=== PATIENT | female | born 2000 | race Caucasian/White ===

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

== ENCOUNTER 2019-03-08 18:56 | Emergency (ER) | payer OTHER, SELFPAY ==
[2019-03-08 19:18] VITALS: BP 133/78; PULSE 97; RESP 18; TEMP 36.5; O2SAT 100
--- NOTE | 2019-03-08 19:36 | NUR.NOTE ---
Nursing Note: Pt reports she hit her head against boyfriends head last night. no visible wounds. Denies LOC, denies blood thinners. Reports BUTCHER since. 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 PERRLA. reports intermittent blurry vision, nausea.
--- NOTE | 2019-03-08 20:13 | W.ED.GENAD ---
Discharge Plan Disposition Patient Disposition: HOME Condition: Good Discharge Details Chief Complaint: HeadInjury Clinical Impression: Head injury Primary Care Provider: Gracie King ED Provider: Lennie Mary Discharge Instructions Instructions: Head Injury (ED) Additional Instructions: Rest. Activities as tolerated. Avoid screen use as discussed. Use Motrin or Tylenol if needed for discomfort. Limit activities for the next few days. No heavy exertion until symptoms are improving. Review information regarding head injuries. Follow-up with your primary care doctor in the next 3 to 5 days. Return for any alarming symptoms, worsening or changes in your symptoms if needed sooner Stand Alone Forms: Work Release Medical Decision Making Patient presents for complaints of worsening headache after striking her head yesterday in bed when rolling over and struck her boyfriend's head with back of her head. Patient reports no loss of consciousness or dizziness. Patient does report mild spots in her vision without vision loss or blurred vision. Patient reports nausea with dry heaving without any fevers or chills. Patient does report mild neck pain. Patient does not feel she needs x-ray imaging of her neck. Discussed CT evaluation versus close observation for complaints of head injury given she does have a mild mechanism of injury however she would prefer CT at this time is aware the risks and the benefits. Patient would prefer testing before CT imaging. CT unremarkable for any acute intracranial abnormalities. Patient requesting discharge home at this time. Head injury precautions discussed. Conservative treatments discussed. Avoidance of screens discussed. Patient provided a work excuse for the next 3 days. Encouraged close follow-up with primary care doctor. Head injury precautions provided. The patient was stable and requested discharge. Prior to discharge, my usual and customary return precautions were reviewed with the patient - this included follow-up instructions and reasons to return to the Emergency Department if conditions worsens, does not improve as expected, or other new concerns arise. HPI General Date/Time Provider Initiated Documentation: 03/08/19 19:04. HPI Narrative: Patient presents for complaints of headache which is 8 out of 10, worse than her typical. Patient reports when she was in bed she accidentally rolled over striking the posterior of her head against her boyfriend. Patient reports immediate pain which is persisted since last night. Patient is concerned as headache is escalating associated with mild spots in her vision. Patient reports associated nausea with dry heaving without active vomiting. Patient denies numbness, tingling or weakness to arms or legs immediately after since her head injury. Patient reports mild neck discomfort without concern of fracture. Patient denies any tinnitus. Steady gait reported. Patient did take Tylenol 1 hour prior to arrival without significant relief of headache. No other concerns or complaints at this time. Patient denies any ill feeling recently. Related Data Allergies Allergy/AdvReac Type Severity Reaction Status Date / Time No Known Allergies Allergy Unverified 03/08/19 19:23 General Stated Complaint: HeadInjury LUIS: 3 Review of Systems Review of Systems ROS Unobtainable: All systems reviewed & are unremarkable except as noted in HPI and below Constitutional Constitutional: Denies chills, Reports fatigue, Denies fever(s), Reports headache(s), Denies malaise and Denies night sweats Eyes Eyes: Denies blurry vision, Denies diplopia and Reports spots in vision ENT Ears, Nose, Mouth, and Throat: Denies vertigo, Reports headache(s) and Denies tinnitus Musculoskeletal Musculoskeletal: Denies numbness Neurologic Neurologic: Denies confusion, Denies vertigo, Reports headache(s), Denies memory loss and Denies numbness Psychiatric Psychiatric: Denies confusion and Denies memory loss Endocrine Endocrine: Reports fatigue [facility] Medical History ADHD (Acute) Amenorrhea, secondary (Acute) Benign microscopic hematuria (Acute) Chronic GERD (Acute) Continuous nicotine dependence (Acute) Depression (Chronic) Hypothyroidism (Chronic) Irregular menses (Acute) Lactose intolerance (Acute) Migraine (Chronic) Nutritional deficiency (Acute) Obesity (Chronic) Social History Smoking/Tobacco Use Status: Current every day Drug use: Never Do you feel safe in your relationship?: Yes Exam Narrative Exam Narrative: CONST: Healthy appearing patient, in no acute distress. Well hydrated. Alert and alert. HENMT: Head nomocephalic, normal to inspection. Atraumatic. Hearing grossly normal. EYES: General normal appearance. Alignment normal. Eyelids normal. Conjunctiva normal. NECK: Normal visual inspection. FROM. Trachea midline. Mild lateral muscular tenderness with palpation. Mild midline tenderness. Full range of motion with minimal neck pain. MUSCULOSKELETAL: Normal Gait. FROM of all extremities. SKIN: Normal. Dry. No rashes. NEURO: Alert and awake. Speech clear. Alert and oriented x 3. Speech is clear. Cranial nerves intact as tested III - XI. Normal Kborsf-dy-azju test. No pronator drift. Normal heel-marie test. No Nystagmus. Gait normal. Strength intact in all extremities. Sensation intact in all extremities. PSYCH: Normal affect. Cooperative. Course Vital Signs Vital signs: Vital Signs Temperature 36.5 C 03/08/19 19:18 Pulse 97 H 03/08/19 19:18 Respiratory Rate 18 03/08/19 19:18 Blood Pressure 133/78 03/08/19 19:18 Pulse Oximetry 100 03/08/19 19:18 Temperature 36.5 C 03/08/19 19:18 Temperature Source Temporal Artery Scan 03/08/19 19:18 Pulse 97 H 03/08/19 19:18 Respiratory Rate 18 03/08/19 19:18 Respiratory Effort 03/08/19 19:33 Respiratory Depth Normal 03/08/19 19:33 Respiratory Pattern Normal 03/08/19 19:33 Blood Pressure 133/78 03/08/19 19:18 Pulse Oximetry 100 03/08/19 19:18 Oxygen Delivery Method Room Air 03/08/19 19:18 Oxygen Flow Rate 0 03/08/19 19:18 Pain Level 8 03/08/19 19:33
--- NOTE | 2019-03-08 20:23 | NUR.NOTE ---
Nursing Note: Ambulated to CT with steady gait.
--- NOTE | 2019-03-08 20:30 | DI.CT_ITS ---
EXAM: CT HEAD WO CLINICAL HISTORY: head injury. TECHNIQUE: A noncontrast enhanced examination was carried out according to the usual protocol. . COMPARISON: No exams were available for comparison FINDINGS: No evidence of an intra or extra-axial hemorrhage. There is no evidence of mass. The white matter is intact. The ventricles are normal. There is no skull fracture. There is no evidence of sinus or masto id air cell pathology. The soft tissues are unremarkable IMPRESSION: No acute intracranial abnormality is demonstrated.
--- NOTE | 2019-03-08 20:51 | DI.VRAD_ITS ---
PROCEDURE INFORMATION: Exam: CT Head without contrast Exam date and time: 03/08/2019 8:28 PM Clinical history: 18 years old, female; Pain; Headache not specified; Additional info: Head butt to back of head TECHNIQUE: Imaging protocol: Computed tomography of the head without contrast. Radiation optimization: All CT scans at this facility use at least one of these dose optimization techniques: automated exposure control; mA and/or kV adjustment per patient size (includes targeted exams where dose is matched to clinical indication); or iterative reconstruction. COMPARISON: CT HEAD WITHOUT CONTRAST 04/04/2014 1:56 PM FINDINGS: Brain: Normal. No hemorrhage. Unremarkable white matter. No mass effect. Ventricles: Normal. No ventriculomegaly. Bones/joints: Unremarkable. No acute fracture. Sinuses: Visualized sinuses are unremarkable. No fluid levels. Mastoid air cells: Visualized mastoid air cells are well aerated. Soft tissues: Unremarkable. IMPRESSION: No acute intracranial abnormality. Dictated and Authenticated by: Cedrick Vega MD. Ordering:DONTE Hogue MD
[2019-03-08 21:34] VITALS: BP 118/64; PULSE 80; RESP 16; TEMP 36.4; O2SAT 98
--- NOTE | 2019-03-08 21:41 | NUR.NOTE ---
Nursing Note: Discharge instructions reviewed with verbal understanding. aware to f/u with pcp as directed. ambulated to exit with steady gait.
== END 2019-03-08 21:40 | disposition home or self-care (01) ==
PROVIDERS: Emergency Provider Physician Assistant; PCP Nurse Practitioner Family
DX: R51 Headache (principal); W50.0XXA Accidental hit or strike by another person, initial encounter
CPT/HCPCS: 81025; 99284; 70450

== ENCOUNTER 2019-05-28 21:01 | Emergency (ER) | payer OTHER, SELFPAY ==
[2019-05-28 21:08] VITALS: BP 128/92; PULSE 79; RESP 16; TEMP 36.3; O2SAT 100
--- NOTE | 2019-05-28 21:22 | W.ED.GENAD ---
Discharge Plan Disposition Patient Disposition: HOME Condition: Good Discharge Details Chief Complaint: Orthopedic Clinical Impression: Contusion, Knee sprain, Back sprain Primary Care Provider: Gracie King ED Provider: Oswald Chapin Home Meds and New Rx's Prescriptions: New lidocaine [Lidoderm] 1 PATCH patch 1 patch Topical Q24H Qty: 4 RF: 0 Discharge Instructions Instructions: Knee Sprain (ED), Concussion (ED), Back Pain (ED) Additional Instructions: At this time your signs and symptoms are clinically consistent with a back sprain. This can cause significant pain and take a fair bit of time to heal. I expect 1 to 2 weeks for potential resolution. In the meantime do not lift anything greater than 5 pounds for the next 2 weeks. Avoid any significant vigorous physical activity. Perform easy gentle regular activities at home without any significant bending or lifting. Please take the steroids as directed. You have been given a prescription for Lidoderm patch. If your insurance does not cover this you can get [id number] Lidoderm patches at 4% which are almost just as effective. Please use a heating pad as often as possible on your back. Perform daily gentle stretches on your back. Please continue to take the Tylenol and Motrin. You can take 1000 mg of Tylenol every 6 hours and 600 mg of ibuprofen every 6 hours. If you do not notice any improvement of your symptoms for your back your knees after 1 to 2 weeks please return for the imaging that we discussed. If you notice any worsening of your symptoms, or any new symptoms such as vomiting, diarrhea, fever, chills, shortness of breath, chest pain, numbness or tingling in your groin or legs, weakness in your legs, loss of control for your bowels or bladder, or fainting , please return immediately to the emergency department for reevaluation. Please follow up with your primary care provider as soon as possible for reassessment and reevaluation. As always, it was a pleasure participating in your medical care today. Stand Alone Forms: Work Release Referrals: Gracie King [Primary Care Provider] - Medical Decision Making This is a 18-year-old female who presents today for evaluation of knee and back pain mild headache. Patient states that yesterday she slipped ground-level and hit her head. She is uncertain if she lost consciousness but thinks she may have briefly blacked out. She is able to get up immediately. Since then she has had very mild pain in her low back, and she has mild pain in her knees on which she landed. She has been able to walk and ambulate well. She denies any bowel or bladder incontinence, saddle anesthesia, numbness tingling or weakness. Symptoms are slightly improved with Tylenol. Made worse with movement and bending. She denies any dizziness or visual changes. She denies any neck pain. She denies any nausea vomiting or diarrhea. Physical exam demonstrates minimal tenderness over the knees, no significant effusion, no tibial plateau tenderness bilaterally. Cranial exam is unremarkable, neurologic exam is unremarkable. Back exam demonstrates minimal midline tenderness over the lower lumbar vertebrae, however there is no evidence of step-off, or significant tenderness. The majority of her pain appears to be in the paraspinal regions. Exam demonstrates no clinical evidence of cauda equina syndrome. The patient ambulates well without any significant difficulty. She shows no signs of acute distress or significant osseous abnormality or deformity. No evidence of significant trauma. I did discuss imaging options for the patient and at this time through notable discussion, weighing the risks and benefits, and a shared decision making process the patient would like to hold on imaging at this time. Respecting the patient's wishes we will hold off on imaging. Feels patient signs and symptoms are clinically consistent with musculoskeletal back strain, mild contusion of the knees, mild concussion. Recommend continued NSAIDs, rest, and a work note will be provided. Discussed red flags which to return. I have extensively reviewed the treatment plan and discharge instructions with the patient. I have addressed all patient concerns at this time. The patient was made aware of what symptoms to monitor for that would warrant a return to the emergency department. Discussed the plan with the patient, they demonstrate verbal understanding and agreement with our assessment and plan at this time. HPI General Date/Time Provider Initiated Documentation: 05/28/19 21:05. HPI Narrative: This is a 18-year-old female who presents today for evaluation of knee and back pain mild headache. Patient states that yesterday she slipped ground-level and hit her head. She is uncertain if she lost consciousness but thinks she may have briefly blacked out. She is able to get up immediately. Since then she has had very mild pain in her low back, and she has mild pain in her knees on which she landed. She has been able to walk and ambulate well. She denies any bowel or bladder incontinence, saddle anesthesia, numbness tingling or weakness. Symptoms are slightly improved with Tylenol. Made worse with movement and bending. She denies any dizziness or visual changes. She denies any neck pain. She denies any nausea vomiting or diarrhea. She has no other complaints at this time. No other modifying factors. Related Data Home Medications Medication Instructions Recorded Confirmed lidocaine [Lidoderm] 1 patch TOPICAL Q24H #4 patch 05/28/19 Previous Rx's Medication Instructions Recorded lidocaine [Lidoderm] 1 patch TOPICAL Q24H #4 patch 05/28/19 Allergies Allergy/AdvReac Type Severity Reaction Status Date / Time No Known Allergies Allergy Unverified 03/08/19 19:23 General Stated Complaint: Orthopedic LUIS: 3 Review of Systems All systems reviewed & are unremarkable except as noted in HPI and below PFSH Social History Smoking/Tobacco Use Status: Current every day Alcohol Intake: current Alcohol Intake frequency: holidays/special occasions only Drug use: Never Do you feel safe in your relationship?: Yes Exam Narrative Exam Narrative: 1.Const: Well-nourished, Well-developed, appearing stated age 2.Eyes: PERRL, no conjunctival injection, and symmetrical lids. 3.ENT: Atraumatic external nose and ears. Moist MM. Neck: Symmetric, trachea midline, No thyromegaly. There is no evidence of raccoon eyes, william sign, CSF rhinorrhea, mastoid tenderness, cranial crepitus, hemotympanum, exophthalmos, or hyphema. Patient demonstrates intact dentition with no signs of tooth avulsion or fracture, no signs of jaw deformity, no evidence of a LeFort's fracture, with an intact palate, nose and orbital region. There is no evidence of a nasal septal hematoma. No proptosis. Jaw closes symmetrically. Airway is clear. 4.CVS: +S1/S2, No murmurs or gallops. Peripheral pulses 2+ and equal in all extremities. Brisk capillary refill in all extremities. 5.RESP: Unlabored respiratory effort. Clear to auscultation bilaterally. No wheezes rales or rhonchi 6.GI: Soft, Nontender/Nondistended, No hepatosplenomegaly. No guarding or rebound. 7.MSK: Normocephalic/Atraumatic, Extremities w/o deformity or ttp No cyanosis or clubbing, Normal movement of all extremities No midline tenderness to palpation over the CTS spine. Minimal tenderness over the lower lumbar spine, no step-off, she does have mild paraspinal tenderness bilaterally in the lumbar region. Normal ROM in flexion, extension, side bend, and rotation. Patient has +5 out of 5 strength in the lower extremities in dorsiflexion and plantarflexion, knee flexion and extension, hip flexion and extension. Normal strength for dorsiflexion and plantar flexion of the great toe bilaterally. There is +2 over 2 dorsalis pedis pulses bilaterally. There is normal sensation to the skin with light touch at the foot, knee, and hip. Normal saddle sensation. Good sensation over the deep sural nerve area bilaterally. Rectal exam demonstrates good rectal tone and good perirectal sensation. Reflexes are +2 over 4 in the patellar reflex bilaterally. +5 out of 5 strength in the medial, ulnar, radial nerve distribution bilaterally in the hands as well as intact light touch sensation to these dermatomes on the hands Left knee: The knee is stable to varus, valgus, and anterior drawer stress. No deformity. Patellar grind test is negative. Minimal tenderness over the distal aspect of the femur. Jarrell test is positive for mild pain. Patient is able to walk without difficulty. No edema or warmth to the joint. No ttp to the patella, tibial plateau, or fibular head. Right knee:The knee is stable to varus, valgus, and anterior drawer stress. No deformity. Patellar grind test is negative. Minimal tenderness over the distal aspect of the femur. Jarrell test is positive for mild pain. Patient is able to walk without difficulty. No edema or warmth to the joint. No ttp to the patella, tibial plateau, or fibular head. 8.Skin: Warm, Dry. No rashes or lesions. 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 Sensation grossly intact, no focal neurologic deficits. 10.Psych: (AAO) x3. Appropriate mood and affect Course Vital Signs Vital signs: Vital Signs Temperature 36.3 C L 05/28/19 21:08 Pulse 79 05/28/19 21:08 Respiratory Rate 16 05/28/19 21:08 Blood Pressure 128/92 H 05/28/19 21:08 Pulse Oximetry 100 05/28/19 21:08 Temperature 36.3 C L 05/28/19 21:08 Temperature Source Skin 05/28/19 21:08 Pulse 79 05/28/19 21:08 Respiratory Rate 16 05/28/19 21:08 Respiratory Effort 05/28/19 21:08 Blood Pressure 128/92 H 05/28/19 21:08 Pulse Oximetry 100 05/28/19 21:08 Oxygen Delivery Method Room Air 05/28/19 21:08 Oxygen Flow Rate 0 05/28/19 21:08 Pain Level 6 05/28/19 21:08
[2019-05-28] MEDS: Lidocaine 5% Patch 1 PATCH TP (21:27)
[2019-05-28] MEDS: Ibuprofen 800 MG TAB PO (21:28)
[2019-05-28 21:38] VITALS: BP 128/92; PULSE 79; RESP 16; O2SAT 100
== END 2019-05-28 21:35 | disposition home or self-care (01) ==
LOC: ER 22:33
PROVIDERS: Emergency Provider Student in an Organized Health Care Education/Training Program; PCP Nurse Practitioner Family
DX: S33.5XXA Sprain of ligaments of lumbar spine, initial encounter (principal); S80.01XA Contusion of right knee, initial encounter; S80.02XA Contusion of left knee, initial encounter; R51 Headache; W00.0XXA Fall on same level due to ice and snow, initial encounter
CPT/HCPCS: 99282; 99283

== ENCOUNTER 2019-06-03 00:07 | Emergency (ER) | payer OTHER, SELFPAY ==
[2019-06-02 23:50] VITALS: BP 147/99; PULSE 112; RESP 16; TEMP 36.3; O2SAT 100
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
[2019-06-03] MEDS: Lidocaine 5% Patch 2 PATCH TP (00:07)
[2019-06-03] MEDS: Ibuprofen 800 MG TAB PO (00:09)
[2019-06-03] MEDS: Acetaminophen 500 MG TAB 1000 MG PO (00:10)
--- NOTE | 2019-06-03 00:11 | NUR.NOTE ---
Nursing Note: 2350: Patient taken to bathroom, instructed on urine collection.
--- NOTE | 2019-06-03 00:13 | NUR.NOTE ---
Nursing Note: 0000: Patient came out of bathroom, stating I forgot to pee in the cup and just peed in the toilet. Dr flood.
--- NOTE | 2019-06-03 00:19 | NUR.NOTE ---
Nursing Note: Patient back to bathroom to collect urine for U preg.
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
[2019-06-03 01:20] VITALS: BP 147/99; PULSE 112; RESP 16; O2SAT 100
== END 2019-06-03 01:25 | disposition home or self-care (01) ==
LOC: ER 01:35
PROVIDERS: Emergency Provider Student in an Organized Health Care Education/Training Program; PCP Nurse Practitioner Family
DX: S70.12XA Contusion of left thigh, initial encounter (principal); S43.401A Unspecified sprain of right shoulder joint, initial encounter; S76.312A Strain of muscle, fascia and tendon of the posterior muscle group at thigh level, left thigh, initial encounter; S06.0X0A Concussion without loss of consciousness, initial encounter; V47.5XXA Car driver injured in collision with fixed or stationary object in traffic accident, initial encounter
CPT/HCPCS: 73552; 81025; 99283

== ENCOUNTER 2019-06-27 20:25 | Emergency (ER) | payer OTHER, SELFPAY ==
[2019-06-27] MEDS: Ondansetron 4 MG/2 ML VIAL IVP (20:25)
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
[2019-06-27 20:28] VITALS: BP 131/82; PULSE 77; RESP 24; TEMP 37.1; O2SAT 98
[2019-06-27] MEDS: MORPHine 10 MG/ML VIAL 2 MG IVP (20:35)
[2019-06-27] MEDS: Lactated Ringers 1,000 ML 150 ML IV (20:45)
[2019-06-27 21:00] LABS: Abs Immature Grans 0.01 k/cumm (0.0-0.09); Absolute Basophil Count 0.04 k/cumm (0.0-0.2); Absolute Eosinophil Count 0.25 k/cumm (0.0-0.7); Absolute Lymphocyte Count 4.04 k/cumm (1.2-3.4); Absolute Monocyte Count 1.06 k/cumm (0.11-0.7); Basophils % 0.4; Eosinophils % 2.4; HCT 41.6 % (36.0-46.0); Immature Grans % 0.1 %; Lymphocytes % 38.1; Mean Corp. HGB Concentration 33.7 g/dL (32.0-36.0); Mean Corpuscular Hemoglobin 29.7 pg (27.0-33.0); Mean Corpuscular Volume 88.1 fL (80-95); Mean Platelet Volume 11.4 fL (8.0-11.0); Platelet Count 369 x1000/uL (130-400); RBC 4.72 m/cumm (4.00-5.20); RBC Distribution Width 13.1 % (11.7-14.6)
[2019-06-27 21:11] LABS: ALT 95 U/L (14-59); AST 65 U/L (15-37); Albumin 4.2 g/dL (3.4-5.0); Alkaline Phosphatase 93 U/L (46-116); Anion Gap 12.2 mmol/L (3-11); BUN 10 mg/dL (7-18); Bilirubin, Total 1.2 mg/dL (0.2-1.0); CO2 26.8 mmol/L (21.0-32.0); CREATININE 0.65 mg/dL (0.55-1.02); Calcium 9.4 mg/dL (8.5-10.1); Chloride 101 mmol/L (98-107); Glucose 94 mg/dL (74-106); Potassium 3.6 mmol/L (3.5-5.1); Sodium 140 mmol/L (136-145); Total Protein 7.9 g/dL (6.4-8.2)
[2019-06-27] MEDS: ACETAMINOPHEN 1,000 MG/100 ML BTL 400 MG (21:17)
[2019-06-27 21:21] LABS: ETHANOL BLOOD < 3.0 mg/dL (<3)
[2019-06-27] MEDS: Omnipaque 350 MG/ML 100 ML BTL IJ (21:43)
[2019-06-27 21:49] LABS: *AMPHETAMINES SCREEN URINE Negative (Negative); *BARBITURATES SCREEN URINE Negative (Negative); *BENZODIAZEPINES SCREEN URINE Negative (Negative); Cannabinoids THC POSITIVE (Negative); Cocaine Screen,Urine Negative (Negative); METHADONE URINE SCREEN Negative (Negative); OPIATES URINE SCREEN POSITIVE (Negative)
[2019-06-27 21:52] LABS: Tricyclic Antidepressants Negative (Negative)
[2019-06-27 21:53] LABS: Bilirubin Negative (Negative); Blood Negative (Negative); Clarity Clear (Clear); Glucose Negative (Negative); Ketones 15 mg/dL (Negative); Leukocyte Esterase Negative (Negative); Nitrite Negative (Negative); Urobilinogen 0.2 EU/dL (Up TO 0.2)
--- NOTE | 2019-06-27 21:55 | DI.CT_ITS ---
EXAM: CT HEAD CERVICAL SPINE WO CLINICAL HISTORY: trauma/fell down flight of stairs TECHNIQUE: COMPARISON: CT HEAD WO from 03/08/2019 FINDINGS: CT examination cervical spine was performed with multi slice acquisition multiplanar reconstruction. Images obtained through the lung apices are unremarkable. No gross cervical mass or adenopathy seen . Tracheolaryngeal structures appear intact. No cervical fracture or dislocation. Noncontrast cranial CT was performed. No evidence of acute intracranial hemorrhage mass effect or mi dline shift. The orbital and temporal bone structures appear intact. Paranasal sinuses predominantl y well aerated with probable small left maxillary retention cyst. Mastoid air cells are clear. No c alvarial fracture identified. IMPRESSION: No evidence of acute cervical spine fracture. No evidence of acute intracranial injury.
--- NOTE | 2019-06-27 21:57 | DI.CT_ITS ---
EXAM: CT CHEST/ABD/PEL W CLINICAL HISTORY: trauma/fell down flight of stairs TECHNIQUE: COMPARISON: No exams were available for comparison FINDINGS: CT examination the chest, abdomen, and pelvis was performed with intravenous infusion of 100 cc of Om nipaque 350. Reconstructions of the thoracic spine and lumbar spine were also obtained. Reconstructions thoracic and lumbar spine show no evidence of acute injury. Minimal T3 superior endp late deformity probably congenital or chronic. No bony injury in the region surveyed. Lungs are clear and well expanded, no pneumothorax or hemothorax. No mediastinal injury. Normal verenice earance of mediastinal vascular structures. Normal appearance of tracheobronchial tree. No chest wa ll injury. Liver, spleen, pancreas, adrenals, and kidneys appear normal with no evidence of acute visceral injur y. Gallbladder and bile ducts are CT normal. No evidence of abdominal or pelvic vascular injury. N o free fluid or free air in the abdominal cavity. No significant abdominal wall hernia or abdominal wall injury. No adenopathy seen. Mineral Surveyor structures unremarkable. IMPRESSION: No evidence of acute injury.
--- NOTE | 2019-06-27 23:08 | DI.VRAD_ITS ---
PROCEDURE INFORMATION: Exam: CT Head Without Contrast Exam date and time: 06/27/2019 9:49 PM Age: 18 years old Clinical indication: Injury or trauma; Fall; Initial encounter; Blunt trauma (contusions or hematomas); Consciousness not specified; Injury date: 06/27/2019; Injury details: Fell down flight of stairs TECHNIQUE: Imaging protocol: Computed tomography of the head without contrast. Radiation optimization: All CT scans at this facility use at least one of these dose optimization techniques: automated exposure control; mA and/or kV adjustment per patient size (includes targeted exams where dose is matched to clinical indication); or iterative reconstruction. COMPARISON: CT HEAD WO 03/08/2019 8:28 PM FINDINGS: Brain: No evidence for acute transcortical infarct. No mass effect or midline shift. No extra-axial collection. No acute intracranial hemorrhage. Basal cisterns are patent. Ventricles: Normal. No ventriculomegaly. Bones/joints: Unremarkable. No acute fracture. Sinuses: Polyp versus retention cyst within the left maxillary sinus. Mastoid air cells: Visualized mastoid air cells are well aerated. Soft tissues: Unremarkable. IMPRESSION: No acute intracranial hemorrhage or mass effect. PROCEDURE INFORMATION: Exam: CT Cervical Spine Without Contrast Exam date and time: 06/27/2019 9:49 PM Age: 18 years old Clinical indication: Injury or trauma; Fall; Initial encounter; Blunt trauma (contusions or hematomas); Consciousness not specified; Injury date: 06/27/2019; Injury details: Fell down flight of stairs TECHNIQUE: Imaging protocol: Computed tomography images of the cervical spine without contrast. Radiation optimization: All CT scans at this facility use at least one of these dose optimization techniques: automated exposure control; mA and/or kV adjustment per patient size (includes targeted exams where dose is matched to clinical indication); or iterative reconstruction. COMPARISON: CT HEAD WO 03/08/2019 8:28 PM FINDINGS: Vertebrae: No acute fracture or traumatic subluxation. No spondylolisthesis. The atlantooccipital and atlantoaxial articulations are intact. Facet joint alignments are maintained. Discs/Spinal canal/Neural foramina: No spinal stenosis. No neural foraminal narrowing. Other bones/joints: Occipital condyles are intact. Prevertebral Space: No prevertebral soft tissue swelling. Soft tissues: Unremarkable. Lungs: Lung apices are normal. IMPRESSION: No acute fracture or traumatic subluxation. Dictated and Authenticated by: Dwayne Castro MD. Ordering:ZACH Skaggs MD
--- NOTE | 2019-06-27 23:31 | DI.VRAD_ITS ---
PROCEDURE INFORMATION: Exam: CT Chest With Contrast Exam date and time: 06/27/2019 9:54 PM Age: 18 years old Clinical indication: Injury or trauma; Fall; Initial encounter; Generalized; Blunt trauma (contusions or hematomas); Injury date: 06/27; Injury details: Trauma patient fell down flight of stairs. TECHNIQUE: Imaging protocol: Computed tomography of the chest with intravenous contrast. Radiation optimization: All CT scans at this facility use at least one of these dose optimization techniques: automated exposure control; mA and/or kV adjustment per patient size (includes targeted exams where dose is matched to clinical indication); or iterative reconstruction. Contrast material: OMNIPAQUE 350; Contrast volume: 100 ml; Contrast route: IV; COMPARISON: US PELVIS ULTRASOUND *(P) 01/09/2015 10:32 PM FINDINGS: Thyroid: The visualized thyroid gland is unremarkable. Lungs: No tracheobronchial abnormalities. No infiltrates or edema. 14 mm subpleural bleb along the posterior left lower lobe. No pulmonary nodules or mass lesions are identified. Pleural space: No pleural effusions. No pneumothorax. Heart: Heart size normal. Mediastinum: The esophagus is largely contracted without gross abnormality. Pulmonary arteries: The pulmonary arteries demonstrate no gross abnormality. Aorta: The aorta enhances appropriately without evidence of dissection or aneurysm. No mediastinal hematoma. Lymph nodes: No supraclavicular or axillary adenopathy. No mediastinal or hilar adenopathy. Bones/joints: No acute osseous abnormalities are identified. Soft tissues: Soft tissues of the thoracic wall demonstrate no gross abnormality. IMPRESSION: No acute thoracic process is identified. PROCEDURE INFORMATION: Exam: CT Abdomen And Pelvis With Contrast Exam date and time: 06/27/2019 9:54 PM Age: 18 years old Clinical indication: Injury or trauma; Fall; Initial encounter; Generalized; Blunt trauma (contusions or hematomas); Injury date: 06/27; Injury details: Trauma patient fell down flight of stairs. TECHNIQUE: Imaging protocol: Computed tomography of the abdomen and pelvis with intravenous contrast. Radiation optimization: All CT scans at this facility use at least one of these dose optimization techniques: automated exposure control; mA and/or kV adjustment per patient size (includes targeted exams where dose is matched to clinical indication); or iterative reconstruction. Contrast material: OMNIPAQUE 350; Contrast volume: 100 ml; Contrast route: IV; COMPARISON: US PELVIS ULTRASOUND *(P) 01/09/2015 10:32 PM FINDINGS: Lungs: Visualized lung bases are clear. Heart: Heart size normal. Mediastinum: The visualized distal esophagus is normal. Liver: Normal size and contour. No mass lesions. No intrahepatic biliary ductal dilatation. Gallbladder and bile ducts: Normal. No calcified stones. No ductal dilation. Pancreas: Normal. No inflammatory changes or ductal dilation. Spleen: Normal. No splenomegaly. Adrenals: Normal. No adrenal mass. Kidneys and ureters: No acute abnormalities. No hydronephrosis or hydroureter. No urinary tract stones are identified. Stomach and bowel: The stomach is grossly normal. The small bowel is normal with no evidence of obstruction. No acute colonic abnormalities. Appendix: The appendix is normal in caliber and demonstrates no evidence of appendicitis. Intraperitoneal space: Small amount of intrapelvic free fluid, within physiologic range for a young woman. No free air. Vasculature: No acute process. No abdominal aortic aneurysm. Lymph nodes: No adenopathy. Bladder: Unremarkable as visualized. Reproductive: Several small physiologic follicles in both ovaries with a 10 mm peripherally enhancing collapsed appearing follicle in the left ovary suspicious for recently ruptured and involuting ovarian follicle. Bones/joints: No acute osseous abnormalities. Soft tissues: Unremarkable. IMPRESSION: 1. No acute intra-abdominal/intrapelvic injuries are identified. 2. Small amount of intrapelvic free fluid, within physiologic range for young woman. 10 mm involuting follicle in the left ovary. Dictated and Authenticated by: Jame Hong MD. Ordering:ZACH Skgags MD
--- NOTE | 2019-06-28 00:03 | DI.VRAD_ITS ---
PROCEDURE INFORMATION: Exam: CT Thoracic Spine Without Contrast Exam date and time: 06/27/2019 10:48 PM Age: 18 years old Clinical indication: Injury or trauma; Fall; Injury date: 06/27/19; Injury details: Fell down stairs TECHNIQUE: Imaging protocol: Computed tomography images of the thoracic spine without contrast. Radiation optimization: All CT scans at this facility use at least one of these dose optimization techniques: automated exposure control; mA and/or kV adjustment per patient size (includes targeted exams where dose is matched to clinical indication); or iterative reconstruction. COMPARISON: No relevant prior studies available. FINDINGS: Vertebrae: Thoracic vertebral alignment is normal. There is slight superior endplate compression deformity of T3 with about 10% loss of anterior vertebral body height. This is smoothly contoured without definite acute fracture lines, and without significant paraspinous edema, which would tend to favor mild chronic compression. If clinically indicated, MRI would allow the most sensitive/specific assessment to differentiate acute from chronic mild compression. No retropulsion. No other fractures. Discs/Spinal canal/Neural foramina: No jumped or perched facets. Disc space heights are well-maintained. No compressive soft disc protrusion or extrusion is evident by CT. No evidence of significant central canal stenosis. No evidence of significant neuroforaminal stenosis. Other bones/joints: No blastic or lytic lesions. Soft tissues: Paraspinous soft tissues are unremarkable without significant soft tissue swelling or soft tissue hematoma. Visualized upper abdominal structures were unremarkable. Lungs: The visualized lung zeng are clear. Pleural space: No evidence of pleural effusion or pneumothorax within the scan range. Mediastinum: Visualized mediastinal structures are normal. Thyroid: The visualized thyroid gland is unremarkable. IMPRESSION: 1. There is slight superior endplate compression deformity of T3 (about 10% ). No definite acute features are identified by CT. No retropulsion. If clinically indicated, MRI assessment would allow the most sensitive/specific differentiation between acute and chronic compression. 2. The remainder of the exam was normal. PROCEDURE INFORMATION: Exam: CT Lumbar Spine Without Contrast Exam date and time: 06/27/2019 10:48 PM Age: 18 years old Clinical indication: Injury or trauma; Fall; Injury date: 06/27/19; Injury details: Fell down stairs TECHNIQUE: Imaging protocol: Computed tomography images of the lumbar spine without contrast. Radiation optimization: All CT scans at this facility use at least one of these dose optimization techniques: automated exposure control; mA and/or kV adjustment per patient size (includes targeted exams where dose is matched to clinical indication); or iterative reconstruction. COMPARISON: No relevant prior studies available. FINDINGS: Vertebrae: Lumbosacral alignment is normal. No fractures or pars defects. L1-L2: Normal. Discs/Spinal canal/Neural foramina: No compressive soft disc extrusions or protrusions are identified by CT. No central canal stenosis. No neuroforaminal stenosis. L4-L5: Normal. L5-S1: Slight posterior disc space narrowing. Other bones/joints: No blastic or lytic lesions. Intraperitoneal space: Small amount of intrapelvic free fluid, within physiologic range for a young woman. Soft tissues: Visualized paraspinal soft tissues are normal. Other findings: T12-L1: Normal. L2-L3: Normal. L3-L4: Normal. Visualized retroperitoneal structures are normal. IMPRESSION: 1. No evidence of fracture or traumatic subluxation in the lumbar spine. 2. Slight posterior disc space narrowing L5-S1. Dictated and Authenticated by: Jame Hong MD. Ordering:ZACH Skaggs MD
[2019-06-28 00:54] VITALS: BP 109/59; PULSE 61; RESP 65; O2SAT 99
== END 2019-06-28 01:00 | disposition home or self-care (01) ==
PROVIDERS: Emergency Provider Emergency Medicine; PCP Nurse Practitioner Family
DX: S50.311A Abrasion of right elbow, initial encounter (principal); S50.312A Abrasion of left elbow, initial encounter; S20.229A Contusion of unspecified back wall of thorax, initial encounter; S09.90XA Unspecified injury of head, initial encounter; W10.9XXA Fall (on) (from) unspecified stairs and steps, initial encounter
CPT/HCPCS: 74177; 80053; 80307; 81025; 96374; 96375; 99285; 70450; 71260; 72125; 80320; 81003; 85025; 99284; J0131; J2270; J2405; J3490

== ENCOUNTER 2019-07-02 18:35 | Emergency (ER) | payer OTHER, SELFPAY ==
[2019-07-02 18:39] VITALS: BP 138/72; PULSE 93; RESP 18; TEMP 36.3; O2SAT 98
--- NOTE | 2019-07-02 19:03 | ED.GENADUL_ITS ---
Discharge Plan Disposition Patient Disposition: HOME Condition: Improving Discharge Details Chief Complaint: Nausea/Vomit/Diar Clinical Impression: Viral illness, Gastroenteritis Primary Care Provider: Gracie King ED Provider: Lennie Mary Home Meds and New Rx's Prescriptions: New ondansetron HCl [Zofran] 4 mg tablet 4 mg PO Q8H PRN (Reason: nausea and vomiting) Qty: 7 RF: 0 Discharge Instructions Instructions: Gastroenteritis (ED), Viral Syndrome (ED) Additional Instructions: Drink plenty of fluids. Rest activities as tolerated. Use Tylenol for soreness if needed. Nausea medication as prescribed if needed for any persistent symptoms. Follow-up promptly with your primary care doctor in the next 1 to 2 days. Return to the emergency room immediately for any escalation of your abdominal pain, worsening of your concerns or alarming symptoms sooner if needed Medical Decision Making Is a 18-year-old patient presenting for abdominal pain for the last 5 days. Patient reports escalating abdominal pain now reports approximately 7 out of 10 abdominal pain. Patient reports pain is constant. No waxing and waning antonio acteristics. Patient does report nausea with onset of vomiting in the last 24 hours. Patient reports watery diarrhea throughout the last 5 days. Patient does report associated nasal congestion. Reports headache and malaise. Reports subjective flushing and chills but no measured fever. Patient denies urinary complaints. On exam patient has obvious abdominal pain with palpation of right upper, left upper and right lower quadrants. Spares left lower quadrant. No obvious peritoneal signs. Patient is afebrile here. Patient is drinking water at this time but reports several episodes of vomiting which is uncontrollable. Patient does report nasal congestion but no other URI complaints. Patient provided IV fluid as well as Zofran. Labs obtained as well as urinalysis and testing. Patient's labs reveal no leukocytosis, CMP is normal, lipase normal, testing negative, urinalysis normal. Reevaluation of the patient reveals significant improvement in her abdominal exam. No right lower quadrant tenderness at this time. No persistent right upper quadrant tenderness. Mild persistent left upper quadrant tenderness. Nausea has improved. Patient reports pain in the left upper quadrant which persists is significantly improved. Given patient's nasal congestion, malaise, headache, chills as well as abdominal pain with nausea vomiting and diarrhea I suspect viral illness however given patient's complaint of escalating abdominal pain we did discussed pursuing CT imaging of her abdomen at this time versus 12 to 24-hour reevaluation for any persistence or worsening of symptoms. Recommended close follow-up with PCP. Patient's preference is to be discharged at this time, prescription for nausea medication, return for any persistence of symptoms in the next 12 to 24 hours, prompt recheck with PCP. The patient was stable and requested discharge. Prior to discharge, my usual and customary return precautions were reviewed with the patient - this included follow-up instructions and reasons to return to the Emergency Department if conditions worsens, does not improve as expected, or other new concerns arise. And she HPI General Date/Time Provider Initiated Documentation: 07/02/19 18:36 . HPI Narrative: This is a 18-year-old patient presenting to the emergency room for nausea vomiting and abdominal pain for the last 5 days. Patient reports escalating abdominal pain which began 5 days ago. Patient reports she did have watery diarrhea for the last 5 days. Patient denies any blood in bowel movements. Patient reports abdominal pain continues to escalate and is now 7 out of 10. Patient describes abdominal pain is diffuse. No waxing and waning with vomiting or bowel movements. Patient reports onset of vomiting in the last 24 hours. Reports approximately 8 episodes of vomiting today and several yesterday continuing overnight. Patient denies urinary urgency, frequency or dysuria. Patient does report feeling dehydrated although she is currently drinking water at the bedside. Patient does report mild nasal congestion. Minimal sore throat. Denies cough, difficulty beating shortness of breath or wheezing. Patient reports mild headache and malaise. Denies vaginal discharge or bleeding. No other concerns or complaints at this time. Patient does report mild back pain which resulted from a fall for which she was evaluated in the emergency room approximately 1 week ago. Related Data Home Medications Medication Instructions Recorded Confirmed ondansetron HCl [Zofran] 4 mg PO Q8H PRN #7 tab 07/02/19 Previous Rx's Medication Instructions Recorded ondansetron HCl [Zofran] 4 mg PO Q8H PRN #7 tab 07/02/19 Allergies Allergy/AdvReac Type Severity Reaction Status Date / Time No Known Allergies Allergy Unverified 07/02/19 18:45 General Stated Complaint: Nausea/Vomit/Diar LUIS: 3 Review of Systems All systems reviewed & are unremarkable except as noted in HPI and below Constitutional Constitutional: Reports chills, Reports fatigue, Denies fever(s), Reports headache(s) and Reports malaise ENT Ears, Nose, Mouth, and Throat: Denies otalgia, Reports headache(s), Reports nasal congestion, Denies sinus pain, Denies sinus pressure, Denies sore throat and Denies throat swelling Cardiovascular Cardiovascular: Denies chest pain, Denies dyspnea and Denies dyspnea on exertion Respiratory Respiratory: Denies cough, Denies dyspnea, Denies dyspnea on exertion and Denies wheezing Gastrointestinal Gastrointestinal: Reports abdominal pain, Denies cramping, Reports diarrhea, Reports nausea and Reports vomiting Genitourinary Genitourinary: Denies hematuria, Denies dysuria, Denies urinary hesitancy and Denies urinary urgency Integumentary/Breasts Skin/Breast: Denies rash Neurologic Neurologic: Reports headache(s) Endocrine Endocrine: Reports fatigue Allergic/Immunologic Allergic/Immunologic: Denies throat swelling and Denies wheezing [facility] Medical History ADHD (Chronic) Amenorrhea, secondary (Chronic) Chronic GERD (Chronic) Depression (Chronic) Hypothyroidism (Chronic) Lactose intolerance (Chronic) Migraine (Chronic) Obesity (Chronic) Surgical History No significant past surgical history (Acute) Social History Smoking/Tobacco Use Status: Current every day Alcohol Intake: current Alcohol Intake frequency: holidays/special occasions only Drug use: Daily Substance use type: marijuana Do you feel safe at home: Yes Do you feel safe in your relationship?: Yes Exam Narrative Exam Narrative: CONST: Healthy appearing patient, in no acute distress. Well hydrated. Alert and oriented. HENMT: Head nomocephalic, normal to inspection. Atraumatic. Hearing grossly normal. TMs appear normal bilaterally, minimal pharyngeal erythema. EYES: General normal appearance. Alignment normal. Eyelids normal. Conjunctiva normal. NECK: Normal visual inspection. FROM. Trachea midline. No Midline tenderness. No cervical lymphadenopathy present. No meningeal signs. CHEST: Normal insepection of the chest. RESP: Normal respiratory effort. Speaking full sentences. No cough. No audible wheezing. No retractions. Breath sounds clear, full and equal bilaterally. No wheezing, rhonchi or rales. CARDIO: No JVD. No murmur. Regular rate and rhythm GI: Bowel sounds hypoactive in all 4 quadrants. Abdomen is soft. Abdominal tenderness noted in the right upper and left upper quadrants as well as right lower quadrant. No abdominal tenderness in the left lower quadrant. No peritoneal signs, rebound or guarding. Back: No CVA tenderness noted. Mild thoracic pain with palpation of the midline Course Vital Signs Vital signs: Vital Signs Temperature 36.3 C L 07/02/19 18:39 Pulse 93 H 07/02/19 18:39 Respiratory Rate 18 07/02/19 18:39 Blood Pressure 138/72 07/02/19 18:39 Pulse Oximetry 98 07/02/19 18:39 Temperature 36.3 C L 07/02/19 18:39 Temperature Source Skin 07/02/19 18:39 Pulse 93 H 07/02/19 18:39 Respiratory Rate 18 07/02/19 18:39 Respiratory Effort Non-Labored 07/02/19 18:42 Blood Pressure 138/72 07/02/19 18:39 Blood Pressure Position Sitting 07/02/19 18:39 Pulse Oximetry 98 07/02/19 18:39 Oxygen Delivery Method Room Air 07/02/19 18:39 Oxygen Flow Rate 0 07/02/19 18:39
[2019-07-02 19:19] LABS: Abs Immature Grans 0.02 k/cumm (0.0-0.09); Absolute Basophil Count 0.02 k/cumm (0.0-0.2); Absolute Eosinophil Count 0.37 k/cumm (0.0-0.7); Absolute Monocyte Count 0.68 k/cumm (0.11-0.7); Basophils % 0.2; Eosinophils % 3.9; HCT 42.8 % (36.0-46.0); HGB 14.2 g/dL (12.0-15.5); Immature Grans % 0.2 %; Lymphocytes % 12.5; Mean Corp. HGB Concentration 33.2 g/dL (32.0-36.0); Mean Corpuscular Hemoglobin 29.8 pg (27.0-33.0); Mean Corpuscular Volume 89.9 fL (80-95); Mean Platelet Volume 11.5 fL (8.0-11.0); Monocytes % 7.1; Neutrophils % 76.1; Platelet Count 308 x1000/uL (130-400); RBC 4.76 m/cumm (4.00-5.20); RBC Distribution Width 13.6 % (11.7-14.6); White Blood Cell Count 9.59 k/cumm (4.4-10.8)
[2019-07-02] MEDS: Normal Saline 1,000 ML 1000 ML IV (19:25)
[2019-07-02] MEDS: Ondansetron 4 MG/2 ML VIAL IVP (19:26)
[2019-07-02 19:31] LABS: ALT 51 U/L (14-59); AST 18 U/L (15-37); Albumin 3.7 g/dL (3.4-5.0); Alkaline Phosphatase 92 U/L (46-116); Anion Gap 10.6 mmol/L (3-11); BUN 7 mg/dL (7-18); Bilirubin, Total 0.9 mg/dL (0.2-1.0); CO2 27.4 mmol/L (21.0-32.0); Calcium 8.7 mg/dL (8.5-10.1); Chloride 102 mmol/L (98-107); Glucose 101 mg/dL (74-106); Lipase 117 U/L (73-393); Potassium 3.3 mmol/L (3.5-5.1); Sodium 140 mmol/L (136-145); Total Protein 7.4 g/dL (6.4-8.2)
[2019-07-02 19:32] LABS: HCG Qual (Serum) Negative
[2019-07-02 19:44] LABS: Bilirubin Negative (Negative); Blood Negative (Negative); Clarity Clear (Clear); Glucose Negative (Negative); Ketones Negative (Negative); Leukocyte Esterase Negative (Negative); Nitrite Negative (Negative); Specific Gravity 1.015 (1.005-1.025); Urobilinogen 0.2 EU/dL (Up TO 0.2)
== END 2019-07-02 20:45 | disposition home or self-care (01) ==
PROVIDERS: Emergency Provider Physician Assistant; PCP Nurse Practitioner Family
DX: R11.2 Nausea with vomiting, unspecified (principal); K52.9 Noninfective gastroenteritis and colitis, unspecified; R10.84 Generalized abdominal pain; R51 Headache
CPT/HCPCS: 36415; 80053; 83690; 87449; 96361; 96374; 99284; 81003; 84703; 85025; 87086; J2405

== ENCOUNTER 2019-07-13 13:04 | Emergency (ER) | payer OTHER, SELFPAY ==
[2019-07-13 13:09] VITALS: BP 152/91; PULSE 99; RESP 16; TEMP 36.5; O2SAT 99
--- NOTE | 2019-07-13 13:22 | ED.GENADUL_ITS ---
Discharge Plan Disposition Patient Disposition: HOME Condition: Improving Discharge Details Chief Complaint: Orthopedic Clinical Impression: Avulsion fracture of bone Primary Care Provider: Gracie King ED Provider: Bg Garcia Home Meds and New Rx's Prescriptions: Continued ondansetron HCl [Zofran] 4 mg tablet 4 mg PO Q8H PRN (Reason: nausea and vomiting) Qty: 7 RF: 0 Discharge Instructions Additional Instructions: Walking boot with use of crutches as needed. Please call the orthopedic office on Monday for a follow-up appointment. The office #[phone]. Ice to area to reduce discomfort. You may use Tylenol if needed for pain. Return to the ER for any acute concerns. Stand Alone Forms: Work Release Discharge Data Discharge Date/Time-TO BE ENTERED AT DEPARTURE: 07/13/19 15:35 Medical Decision Making 18-year-old female with a twisting injury to the right foot last night with medial pain and swelling and slight bruising today. Differential diagnosis includes strain versus fracture. Patient referred for x-ray. The x-ray reveals a small cortical piece of bone lateral to the calcaneal cuboid joint with associated soft tissue swelling may represent a small avulsion fracture. Will immobilize in a walking boot. Crutches if needed. Will refer to orthopedics for recheck in clinic. HPI General Mode of arrival: ambulatory . Date/Time Provider Initiated Documentation: 07/13/19 13:19 . Limitations to Documentation: no limitations . Information obtained by: patient . History of Present Illness 18 year old F presents to the emergency department with the chief complaint of Right foot pain after twisting injury on stairs yesterday, described as moderate, Quality is described as aching and dull, and is localized to the right and lower extremity. Patient reports no radiation. Patient started experiencing this hour(s) and it has been constant. No relieving factors improve symptom(s), No exacerbating factors reported . Patient did receive the following treatments prior to arrival, none Related Data Home Medications Medication Instructions Recorded Confirmed ondansetron HCl [Zofran] 4 mg PO Q8H PRN #7 tab 07/02/19 07/13/19 Previous Rx's Medication Instructions Recorded ondansetron HCl [Zofran] 4 mg PO Q8H PRN #7 tab 07/02/19 Allergies Allergy/AdvReac Type Severity Reaction Status Date / Time No Known Allergies Allergy Unverified 07/13/19 13:11 General Stated Complaint: Orthopedic LUIS: 4 Review of Systems Narrative: 6 systems reviewed and otherwise negative. No other injury. No numbness or tingling. [facility] Medical History ADHD (Chronic) Amenorrhea, secondary (Chronic) Chronic GERD (Chronic) Depression (Chronic) Hypothyroidism (Chronic) Lactose intolerance (Chronic) Migraine (Chronic) Obesity (Chronic) Surgical History No significant past surgical history (Acute) Social History Smoking/Tobacco Use Status: Current every day Tobacco Type: cigarettes Smoking packs per day: 0.5 Smoking cigarettes per day: 10.0 Alcohol Intake: current Alcohol Intake frequency: holidays/special occasions only Drug use: Daily Substance use type: marijuana Do you feel safe at home: Yes Do you feel safe in your relationship?: Yes Exam Narrative Exam Narrative: GEN: awake, alert, oriented 3. Pleasant, well groomed, interactive. HEAD: Normocephalic, atraumatic ENT: Mucous membranes moist, oropharynx unremarkable, External ear exam unremarkable EXT: Full ROM, the right foot has medial swelling and ecchymosis, tender. The bilateral malleoli are nontender. Neuro: Grossly normal neurologic exam, conversant, interactive. Psych: Speech fluent, thoughts congruent, affect normal Course Vital Signs Vital signs: Vital Signs Temperature 36.5 C 07/13/19 13:09 Pulse 99 H 07/13/19 13:09 Respiratory Rate 16 07/13/19 13:09 Blood Pressure 152/91 H 07/13/19 13:09 Pulse Oximetry 99 07/13/19 13:09 Temperature 36.5 C 07/13/19 13:09 Temperature Source Skin 07/13/19 13:09 Pulse 99 H 07/13/19 13:09 Respiratory Rate 16 07/13/19 13:09 Respiratory Effort Non-Labored 07/13/19 13:09 Blood Pressure 152/91 H 07/13/19 13:09 Pulse Oximetry 99 07/13/19 13:09 Oxygen Delivery Method Room Air 07/13/19 13:09 Oxygen Flow Rate 0 07/13/19 13:09 Pain Level 8 07/13/19 13:11
--- NOTE | 2019-07-13 14:07 | DI.RAD_ITS ---
EXAM: XR FOOT RT COMPLETE INDICATION: LATERAL FOOT PAIN/SWELLING. COMPARISON: No exams were available for comparison TECHNIQUE: 2D digital imaging was performed. FINDINGS: There is a small bony density near the lateral aspect of the calcaneocuboid joint, which could repres ent a small ossicle versus avulsion fracture. There is a small accessory navicular. There is minima l spurring at the Achilles insertion on the calcaneus. IMPRESSION: Question of an avulsion fracture versus ossicle adjacent to the lateral aspect of the calcaneocuboid joint.
--- NOTE | 2019-07-13 15:13 | DI.VRAD_ITS ---
PROCEDURE INFORMATION: Exam: XR Right Foot Complete Exam date and time: 07/13/2019 2:12 PM Age: 18 years old Clinical indication: Other: Lateral foot pain/swelling TECHNIQUE: Imaging protocol: XR Right foot. Views: 3 or more views. COMPARISON: No relevant prior studies available. FINDINGS: Bones/joints: Small curvilinear cortical bone fragment lateral to the distal calcaneus near the posterior inferior cuboid, which may represent a small avulsion fracture. Soft tissues: Soft tissue swelling lateral aspect of the foot. Soft tissue swelling along the dorsum of the foot. IMPRESSION: Small cortical piece of bone lateral to the calcaneal cuboid joint with associated soft tissue swelling may represent a small avulsion fracture. Dictated and Authenticated by: Arabella Simmons MD. Ordering:ARLINE Pederson MD
== END 2019-07-13 15:35 | disposition home or self-care (01) ==
PROVIDERS: Emergency Provider Emergency Medicine; PCP Nurse Practitioner Family
DX: S92.211A Displaced fracture of cuboid bone of right foot, initial encounter for closed fracture (principal); W10.8XXA Fall (on) (from) other stairs and steps, initial encounter
CPT/HCPCS: 28450; 73630; E0114; L4361

== ENCOUNTER 2020-02-11 14:31 | Outpatient (REF) | payer OTHER, SELFPAY ==
[2020-02-11 19:09] LABS: TSH (W/Ref FT4) 4.96 uIU/mL (0.36-3.74)
[2020-02-11 19:27] LABS: FREE T4 1.13 ng/dL (0.76-1.46)
== END 2020-02-11 14:51 ==
LOC: NCHCN 14:31
PROVIDERS: PCP Nurse Practitioner Family; Visit Provider Nurse Practitioner Family
DX: E03.9 Hypothyroidism, unspecified (principal)
CPT/HCPCS: 84439; 84443

== ENCOUNTER 2020-12-11 18:56 | Outpatient (REF) | payer OTHER, SELFPAY ==
[2020-12-11 20:54] LABS: Hemoglobin A1C 5.4 % (<5.7)
[2020-12-11 21:03] LABS: HCG Quant, Pregnancy < 1 mIU/mL (1-3); TSH (W/Ref FT4) 2.73 uIU/mL (0.36-3.74)
[2020-12-13 11:54] LABS: COVID-19 RT-PCR UVMMC Result Negative (Negative)
[2020-12-14 11:32] LABS: Alpha 1 Antitrypsin,Serum 109 mg/dL (90-200)
== END 2020-12-11 18:57 | disposition home or self-care (01) ==
LOC: NCHCN 18:56
PROVIDERS: PCP Nurse Practitioner Family; Visit Provider Nurse Practitioner Family
DX: E88.01 Alpha-1-antitrypsin deficiency (principal); J06.9 Acute upper respiratory infection, unspecified; M79.601 Pain in right arm; N91.2 Amenorrhea, unspecified; R19.7 Diarrhea, unspecified; R73.09 Other abnormal glucose; G43.909 Migraine, unspecified, not intractable, without status migrainosus; E03.9 Hypothyroidism, unspecified
CPT/HCPCS: U0003; 82103; 83036; 84443; 84702

== ENCOUNTER 2021-04-26 00:24 | Emergency (ER) | payer MEDICAID, SELFPAY ==
[2021-04-26 00:29] VITALS: BP 141/90; PULSE 91; RESP 18; TEMP 36.4; O2SAT 98
--- NOTE | 2021-04-26 00:30 | ED.GENADUL_ITS ---
Discharge Plan Disposition Patient Disposition: HOME Condition: Improving Discharge Details Clinical Impression: Contusion of hand, right Primary Care Provider: Lennie Dave ED Provider: Bg Garcia Home Meds and New Rx's Prescriptions: Continued ondansetron HCl [Zofran] 4 mg tablet 4 mg PO Q8H PRN (Reason: nausea and vomiting) Qty: 7 RF: 0 pantoprazole [Protonix] 20 mg tablet,delayed release (DR/EC) 20 mg PO DAILY RF: 0 albuterol sulfate 90 mcg/actuation HFA aerosol inhaler 2 puff INHALATION PRN PRNRF: 0 fluoxetine [Prozac] 20 mg capsule 20 mg PO DAILY RF: 0 Discharge Instructions Instructions: Contusion in Adults (ED) Additional Instructions: Wear splint as needed for comfort approximately 5 to 7 days time. May remove for bathing. You will likely have increased bruising over the next 24 hours. May apply ice through the splint to reduce discomfort. Continue Tylenol and/or ibuprofen as needed for pain. Medical Decision Making 20-year-old female, otherwise healthy, tripped over her dog at home fell forward landing on both hands but injuring her right hand along the fifth metacarpal and ulnar aspect. No motor or sensory deficits. Patient given oral analgesia and referred for x-ray; presents no evidence of acute fracture. Will place in removable splint for comfort. Consistent with contusion and strain. Appropriate for discharge to home. HPI General Mode of arrival: ambulatory . Date/Time Provider Initiated Documentation: 04/26/21 00:25 . Limitations to Documentation: no limitations . Information obtained by: patient . History of Present Illness 20 year old F presents to the emergency department with the chief complaint of Right hand pain after fall., described as moderate, Quality is described as dull and constant, and is localized to the right and upper extremity. Patient reports no radiation. Patient started experiencing this hour(s) and it has been constant. No relieving factors improve symptom(s), Movement worsens symptoms . Patient notes denies headaches, nausea/vomiting and syncope. Patient did receive the following treatments prior to arrival, other (Tylenol) Related Data Home Medications Medication Instructions Recorded Confirmed ondansetron HCl [Zofran] 4 mg PO Q8H PRN #7 tab 07/02/19 07/13/19 albuterol sulfate 2 puff INHALATION PRN PRN 04/26/21 04/26/21 fluoxetine [Prozac] 20 mg PO DAILY 04/26/21 04/26/21 pantoprazole [Protonix] 20 mg PO DAILY 04/26/21 04/26/21 Previous Rx's Medication Instructions Recorded ondansetron HCl [Zofran] 4 mg PO Q8H PRN #7 tab 07/02/19 Allergies Allergy/AdvReac Type Severity Reaction Status Date / Time No Known Allergies Allergy Unverified 04/26/21 00:31 General LUIS: 4 Review of Systems Narrative: 6 systems reviewed and otherwise negative [facility] Active Problem List (Updated 04/26/21 @ 01:10 by Bg Garcia MD) Viral illness (Acute) Gastroenteritis (Acute) Avulsion fracture of bone (Acute) Contusion of hand, right (Acute) Obesity (Chronic) Migraine (Chronic) Lactose intolerance (Chronic) Hypothyroidism (Chronic) Depression (Chronic) Chronic GERD (Chronic) Amenorrhea, secondary (Chronic) ADHD (Chronic) Surgical History No significant past surgical history Social History Smoking/Tobacco Use Status: Current every day Tobacco Type: cigarettes Smoking packs per day: 0.5 Smoking cigarettes per day: 10.0 Smoking risk assessment performed?: Yes Alcohol Intake: current Alcohol Intake frequency: holidays/special occasions only Drug use: Daily Substance use type: marijuana Do you feel safe at home: Yes Do you feel safe in your relationship?: Yes Exam Narrative Exam Narrative: GEN: awake, alert, oriented 3. Pleasant, well groomed, interactive. HEAD: Normocephalic, atraumatic EYES: PERRL, EOMI NECK: Full ROM, nontender CHEST/RESP: Nontender, no respiratory distress EXT: Full ROM, right hand ulnar aspect and fifth metacarpal swelling, tenderness, ecchymosis. Distal motor intact, sensation normal throughout, capillary refill less than 2 seconds Neuro: Grossly normal neurologic exam, conversant, interactive. Psych: Speech fluent, thoughts congruent, affect normal
--- NOTE | 2021-04-26 00:30 | DI.RAD_ITS ---
Exam(s) XR HAND RT COMPLETE EXAM: XR HAND RT COMPLETE CLINICAL HISTORY: R hand pain, ulnar aspect. TECHNIQUE: 2D digital imaging was performed. COMPARISON: CR RIGHT HAND COMPLETE from 04/25/2016 FINDINGS: BONES: No acute fracture is present. No bony destructive lesion is seen. JOINTS: No dislocation present. SOFT TISSUE: Normal. IMPRESSION: Unremarkable radiographs of the right hand. DATA REPOSITORY: RADIATION DOSE DELIVERED:
--- NOTE | 2021-04-26 01:11 | DI.VRAD_ITS ---
PROCEDURE INFORMATION: Exam: XR Right Hand Exam date and time: 04/26/2021 12:36 AM Age: 20 years old Clinical indication: Injury or trauma; Blunt trauma (contusions or hematomas); Right; Injury date: 04/25/21; Injury details: Fall landing on hand, R hand pain, ulnar aspect TECHNIQUE: Imaging protocol: XR Right hand. Views: 3 or more views. COMPARISON: CR RIGHT HAND COMPLETE 04/25/2016 10:58 PM FINDINGS: Bones/joints: No suspicious osseous lytic or blastic lesion. No acute fracture or dislocation. Joint spaces are preserved. Soft tissues: No focal abnormality IMPRESSION: No acute fracture or dislocation. Dictated and Authenticated by: Gianfranco Diego MD. Ordering:ARLINE Pederson MD
== END 2021-04-26 01:17 | disposition home or self-care (01) ==
PROVIDERS: Emergency Provider Emergency Medicine; PCP Nurse Practitioner Family
DX: S60.221A Contusion of right hand, initial encounter (principal); W01.0XXA Fall on same level from slipping, tripping and stumbling without subsequent striking against object, initial encounter
CPT/HCPCS: 29125; 81025; 99283; 73130

== ENCOUNTER 2021-05-11 15:53 | Outpatient (REF) | payer MEDICAID, SELFPAY ==
--- NOTE | 2021-05-11 14:30 | PAPFT_PTH ---
PATIENT: Debra Draper LOC: [facility] U#:[id number] AGE/SX: 20/F ROOM: RE05/11/[address]: Lennie Dave : 2000 BED: DIS: 05/11/2021 SPEC #: [id number] RECD: 05/12/21 12:52 STATUS: NAHID REYves #: [id number] GRADY: 05/11/21 14:[address]: Lennie Dave DEPT: [facility] Cytology RECD BY: Josiane Noriega Tissues: 1 - CX/ENDOCX FOR PAP SMEARS Procedures: PAP THIN PREP/UVM Screening HPV DNA PROBE Comments: [id number]
[2021-05-11 21:38] LABS: Abs Immature Grans 0.05 10^3/uL (0.0-0.06); Absolute Basophil Count 0.09 10^3/uL (0.0-0.2); Absolute Eosinophil Count 0.82 10^3/uL (0.0-0.7); Absolute Lymphocyte Count 3.95 10^3/uL (1.2-3.4); Absolute Monocyte Count 0.81 10^3/uL (0.1-0.8); Basophils % 0.7; Eosinophils % 6.4; HCT 44.2 % (36.0-46.0); HGB 14.5 g/dL (11.2-15.7); Immature Grans % 0.4; Lymphocytes % 30.8; MCH 29.7 pg (27.0-33.0); MCHC 32.8 % (32.0-36.0); MCV 90.4 fL (80-95); Monocytes % 6.3; Neutrophils % 55.4; Nucleated RBC 0 %; Platelet Count 338 10^3/uL (130-400); RBC 4.89 10^6/uL (3.93-5.22); RDW 12.1 % (11.7-14.6); RDW-SD 40.1 fL; WBC 12.84 10^3/uL (4.4-10.8)
[2021-05-11 21:41] LABS: Absolute Neutrophil Count 7.11 10^3/uL (1.2-6.7)
[2021-05-11 22:02] LABS: Iron 46 ug/dL (50-170); Total Iron Binding Capacity 328 ug/dL (250-450); Transferrin Sat 14 % (15-50)
[2021-05-11 22:11] LABS: ALT 30 U/L (14-59); AST 13 U/L (15-37); Albumin 3.9 g/dL (3.4-5.0); Alkaline Phosphatase 89 U/L (46-116); Anion Gap 8.2 mmol/L (3-11); BUN 11 mg/dL (7-18); Bilirubin, Total 0.4 mg/dL (0.2-1.0); CO2 27.8 mmol/L (21.0-32.0); CREATININE 0.6 mg/dL (0.55-1.02); Calcium 9.3 mg/dL (8.5-10.1); Chloride 102 mmol/L (98-107); Ferritin 91 ng/mL (8-252); Glucose 91 mg/dL (74-106); Potassium 4.2 mmol/L (3.5-5.1); Sodium 138 mmol/L (136-145); TSH (W/Ref FT4) 5.28 uIU/mL (0.36-3.74); Total Protein 7.2 g/dL (6.4-8.2)
[2021-05-11 22:38] LABS: FREE T4 1.01 ng/dL (0.76-1.46)
== END 2021-05-11 15:54 | disposition home or self-care (01) ==
LOC: NCHCN 15:53
PROVIDERS: PCP Nurse Practitioner Family; Visit Provider Nurse Practitioner Family
DX: R13.10 Dysphagia, unspecified (principal); R07.89 Other chest pain; R23.8 Other skin changes; Z12.4 Encounter for screening for malignant neoplasm of cervix; R87.612 Low grade squamous intraepithelial lesion on cytologic smear of cervix (LGSIL)
CPT/HCPCS: 80053; 88142; 82728; 83540; 83550; 84439; 84443; 85025; 87624

== ENCOUNTER 2021-06-17 04:33 | Outpatient (RCR) | payer MEDICAID, SELFPAY ==
--- NOTE | 2021-06-17 15:15 | HOLTER_ITS ---
APPROVED REPORT Conclusion This is a 48-hour Holter monitor reportedly ordered for shortness of breath Predominant rhythm was sinus with an average heart rate of 85. Minimum was 54, maximum 152 Sinus arrhythmia was noted during sleep A total of 16 isolated PVCs were seen A total of 3 premature atrial contractions were recorded There was no atrial fibrillation, no high-grade AV block, no pauses greater than 3 seconds There were no apparent patient symptoms
== END 2021-07-05 23:59 | disposition home or self-care (01) ==
LOC: RT 04:33
PROVIDERS: PCP Nurse Practitioner Family; Visit Provider Nurse Practitioner Family
DX: R06.02 Shortness of breath (principal); I49.3 Ventricular premature depolarization; I49.1 Atrial premature depolarization
CPT/HCPCS: 93225; 93226

== ENCOUNTER 2021-06-17 04:39 | Outpatient (CLI) | payer MEDICAID, SELFPAY ==
[2021-06-17] MEDS: Albuterol HFA 18 GM 200 PUFF INH IH (16:32)
[2021-06-17] MEDS: Inhaler, Assist Device 1 EACH MC (16:33)
--- NOTE | 2021-06-18 14:27 | W.PFT ---
Date of service: 06/17/21 Time of Service: 15:29 Pulmonary Function Test Result Requesting Provider Lennie Dave Indications: VARELA Interpretation Spirometry: There is moderate airflow limitation. There is a significant bronchodilator response. Lung Volumes: Lung volumes are normal Diffusion Capacity: Diffusion is normal Airway Pressure: Normal airways resistance Impression Moderate airflow limitation with a significant bronchodilator response. Clinical Correlation therefore is recommended.
== END 2021-06-17 04:40 | disposition home or self-care (01) ==
LOC: RT 04:39
PROVIDERS: PCP Nurse Practitioner Family; Visit Provider Nurse Practitioner Family
DX: R06.00 Dyspnea, unspecified (principal); R07.89 Other chest pain; R06.02 Shortness of breath; Z15.89 Genetic susceptibility to other disease; Z83.6 Family history of other diseases of the respiratory system; Z87.891 Personal history of nicotine dependence; R94.2 Abnormal results of pulmonary function studies
CPT/HCPCS: 94060; 94726; 94729

== ENCOUNTER 2022-04-06 03:21 | Outpatient (CLI) | payer MEDICAID, SELFPAY ==
[2022-04-06 14:49] LABS: Panorama Kit Sent via Fed Ex
[2022-04-06 16:04] LABS: FREE T4 0.98 ng/dL (0.76-1.46); TSH 3.27 uIU/mL (0.36-3.74)
[2022-04-06 22:05] LABS: Thyroglobulin Antibody 49 U/mL (<=60); Thyroperoxidase Antibody 567 U/mL (<=60)
[2022-04-07 09:06] LABS: Varicella IgG Antibody Negative (See Note)
[2022-04-07 23:22] LABS: Syphilis IgG w/Reflex Nonreactive (Nonreactive)
[2022-05-09 13:43] LABS: Result Summary NEGATIVE; Specimen WB Whole Blood
== END 2022-04-06 03:22 | disposition home or self-care (01) ==
PROVIDERS: PCP Nurse Practitioner Family; Visit Provider Advanced Practice Midwife
DX: Z34.01 Encounter for supervision of normal first pregnancy, first trimester (principal); E84.9 Cystic fibrosis, unspecified; Z3A.00 Weeks of gestation of pregnancy not specified
CPT/HCPCS: 36415; 81220; 81222; 86376; 86787; 86850; 86900; 86901; 84439; 84443; 86780

== ENCOUNTER 2022-04-06 14:37 | Outpatient (REF) | payer MEDICAID, SELFPAY ==
--- NOTE | 2022-04-06 14:00 | PAPFT_PTH ---
PATIENT: Debra Draper LOC: [facility] U#:[id number] AGE/SX: 21/F ROOM: RE04/06/[address]: Earnestine Oh CNM : 2000 BED: DIS: 04/06/2022 SPEC #: [id number] RECD: 04/06/22 18:11 STATUS: NAHID REQ #: [id number] GRADY: 04/06/22 14:[address]: Earnestine Oh [facility] Cytology RECD BY: Josiane Noriega ENTERED: 04/06/22 18:11 SP TYPE: PAPFT OTHR DR: Lennie Dave Tissues: 1 - CX/ENDOCX FOR PAP SMEARS Procedures: PAP THIN PREP/UVM Screening Comments: [id number] (CHLAMYDIA/GC)
[2022-04-06 16:27] LABS: *AMPHETAMINES SCREEN URINE Negative (Negative); *BARBITURATES SCREEN URINE Negative (Negative); *BENZODIAZEPINES SCREEN URINE Negative (Negative); Cannabinoids THC Positive (Negative); Cocaine Screen,Urine Negative (Negative); METHADONE URINE SCREEN Negative (Negative); OPIATES URINE SCREEN Negative (Negative)
[2022-04-06 16:29] LABS: Tricyclic Antidepressants Negative (Negative)
[2022-04-07 14:46] LABS: Chlamydia Result Negative (Negative); GC Result Negative (Negative)
[2022-04-14 08:11] LABS: Norfentanyl by LC-MS/MS Not Detected
[2022-04-14 12:10] LABS: Buprenorphine Negative ng/mL (Cutoff: 5.0); Norbuprenorphine Negative ng/mL (Cutoff: 2.5)
== END 2022-04-06 14:38 | disposition home or self-care (01) ==
LOC: LBN 14:37
PROVIDERS: PCP Nurse Practitioner Family; Visit Provider Advanced Practice Midwife
DX: Z34.91 Encounter for supervision of normal pregnancy, unspecified, first trimester; Z12.4 Encounter for screening for malignant neoplasm of cervix; Z11.3 Encounter for screening for infections with a predominantly sexual mode of transmission
CPT/HCPCS: 80307; 80348; 87491; 87591; 88142; 80354; 87086

== ENCOUNTER → 2022-05-11 02:22 | Outpatient (CLI) | payer MEDICAID, SELFPAY ==
--- NOTE | 2022-05-11 08:00 | DI.US_ITS ---
Exam(s) US OB 2-3 TRIMESTER EXAM: US OB 2-3 TRIMESTER CLINICAL HISTORY: ,z34.90 TECHNIQUE: Ultrasound performed using standard protocol. COMPARISON: No exams were available for comparison FINDINGS: Ob ultrasound was performed utilizing 2nd trimester protocol. biometry is consistent with gestational age of 21 weeks 5 days and EDC of September 16. Placenta is anterior with no evidence of placenta previa. There is visually a normal quantity of amn iotic fluid. anomaly screen is within normal limits as per the attached checklist. heart rate is 144 BPM IMPRESSION: DATA REPOSITORY:
== END ==
PROVIDERS: PCP Nurse Practitioner Family; Visit Provider Advanced Practice Midwife
DX: Z34.92 Encounter for supervision of normal pregnancy, unspecified, second trimester (principal); Z3A.21 21 weeks gestation of pregnancy
CPT/HCPCS: 76805

== ENCOUNTER 2022-05-25 18:22 | Outpatient (REF) | payer MEDICAID, SELFPAY ==
[2022-05-27 11:16] LABS: COVID-19 RT-PCR UVMMC Result Negative (Negative)
== END 2022-05-25 18:23 | disposition home or self-care (01) ==
LOC: LBN 18:22
PROVIDERS: PCP Nurse Practitioner Family; Visit Provider Physician Assistant Medical
DX: B34.8 Other viral infections of unspecified site (principal); Z20.822 Contact with and (suspected) exposure to COVID-19; J35.1 Hypertrophy of tonsils
CPT/HCPCS: U0003; 87081

== ENCOUNTER 2022-07-18 17:40 | Outpatient (REF) | payer MEDICAID, SELFPAY ==
[2022-07-18 18:55] LABS: *AMPHETAMINES SCREEN URINE Negative (Negative); *BARBITURATES SCREEN URINE Negative (Negative); *BENZODIAZEPINES SCREEN URINE Negative (Negative); Cannabinoids THC Positive (Negative); Cocaine Screen,Urine Negative (Negative); METHADONE URINE SCREEN Negative (Negative); OPIATES URINE SCREEN Negative (Negative); Tricyclic Antidepressants Negative (Negative)
[2022-07-23 10:26] LABS: Buprenorphine Negative ng/mL (Cutoff: 5.0); Norbuprenorphine Negative ng/mL (Cutoff: 2.5)
== END 2022-07-18 17:41 | disposition home or self-care (01) ==
LOC: LBN 17:40
PROVIDERS: PCP Nurse Practitioner Family; Visit Provider Advanced Practice Midwife
DX: O99.323 Drug use complicating pregnancy, third trimester (principal); F12.90 Cannabis use, unspecified, uncomplicated; O99.333 Smoking (tobacco) complicating pregnancy, third trimester; F17.210 Nicotine dependence, cigarettes, uncomplicated; Z3A.30 30 weeks gestation of pregnancy
CPT/HCPCS: 80307; 80348; 87086; 87480; 87510; 87660

== ENCOUNTER 2022-07-23 11:50 | Inpatient (IN) | payer MEDICAID, SELFPAY ==
[2022-07-23] VITALS (8 sets, daily range): BP systolic 112–135; BP diastolic 66–94; PULSE 77–89; RESP 18
[2022-07-23] MEDS: Penicillin G POT. 5,000,000 UNITS in Normal Saline 100 ML 200 UNITS IVPB (11:15)
[2022-07-23] MEDS: Oxytocin/Normal Saline 30 UNIT/500 ML BAG 167 UNITS IV (11:35)
--- NOTE | 2022-07-23 11:55 | HPE_ITS ---
Date of service: 07/23/22 Time of Service: 11:55 Assessment and Plan Assessment and plan (1) labor in third trimester: Status: Acute Assessment and plan: Admit to Center. Comfort measures. Covid- 19 test. Prepare for imminent . Dr. Rojas is present on the unit and will attend the . She has notified the team at [facility]. OB-HPI Labor/Delivery History of Present Illness Reason for Visit: NST Chief Complaint: Uterine Contractions; Suspected Rupture of Membranes (at 1030) , Associated Signs and Symptoms of Suspected ROM: cramping all night. DONALDO Calculator Estimated Delivery Date Method WG Current Estimate 09/23/22 Ultrasound #1 Other Estimates 08/24/22 LMP (Uncertain) Infant Delivery Date-Baby A 07/23/22 31w 1d History of Present Expected Delivery Route/Plan - CNM FOB/henrietta Bolanos (first child) BG- Ellenmonique Vail/ Breast feeding/ Varicella Non-Immune: offer vaccine Specific Issues/Plan 1. Transfer @ 15 wks from [place]; labs/records reviewed, DONALDO 09/23/22 2. MJ and tobacco user; repeat UDS @ 28 wks, aware of POSC ___ 2a. Smoking 8 cigarettes per day, decreased from 1 PPD- nicotine patch ordered 05/11/22- stopped the patch 2b. POSC discussed and will complete at 32 weeks 3. PAP done 05/25: LGSIL, +HPV, repeated at initial OB- Normal 4. Hx anxiety/depression, accepts [facility]- They are not available on her days off 4a. referred to Sima Siegel for coordination of services 5. Hypothyroidism, no meds, thyroid panel 04/06/22 5a. Initial TSH 3.27; T4 nml, TPO - 567 (H)- referral to [facility] endocrinology 5b. Has not scheduled endocrinology visit. 6. Requests cfDNA & CF screening: low prob x5, female; CF negative 7. FOB hx familial hemochromacytosis; pt w/familial hx alpha 1 antitrypsin deficiency 7a. [facility] telegenetics consult ordered ( patient cancelled and did no reschedule) 8. Asthma, uses inhaler daily 9. Pt and FB are not COVID vaccinated, flu vaccine received 05/11/22, Had covid infection 07/07/22, schedule 32 weeks growth US 10. UDS at 30 weeks +THC, POSC PFSH All Active Problems (Updated 07/23/22 @ 12:06 by Aranza Robertson CNM) labor in third trimester (Acute) Abdominal pain (Acute) COVID-19 affecting in third trimester (Acute) BMI 29.0-29.9,adult (Acute) Anti-TPO antibodies present (Acute) Elevated TSH (Acute) Susceptible to varicella (non-immune), currently (Acute) Depression (Chronic) ADHD, predominantly hyperactive type (Acute) Dx since childhood, no meds since age 12 Hypothyroidism (Chronic) Elevated TSH w/nml T4 Exercise-induced asthma (Acute) Anxiety (Chronic) Marijuana use (Acute) Smoker (Acute) (Acute) Migraine (Chronic) Medical History (Updated 07/23/22 @ 12:06 by Aranza Robertson CNM) ADHD Chronic GERD Family history of alpha 1 antitrypsin deficiency Pt's mother and sister Family history of hemochromatosis Father of baby's family High risk HPV infection Lactose intolerance Obesity BMI 29 at beginning pf Vaginal Pap smear with LGSIL Surgical History No significant past surgical history Family History (Updated 03/23/22 @ 10:54 by Aranza Emanuel CNM) Self Asthma Depression No meds ever Mother Alpha 1-antitrypsin PiMS phenotype Sister Alpha 1-antitrypsin PiMS phenotype Paternal Grandfather Diabetes Social History Smoking/Tobacco Use Status: Current every day Tobacco Type: cigarettes Smoking packs per day: 0.5 Smoking cigarettes per day: 10.0 Tobacco: How many years used: 6 Quit status: considering quitting Smoking risk assessment performed?: Yes Alcohol Intake: current Alcohol Intake frequency: holidays/special occasions only Drug use: Daily Substance use type: marijuana Do you feel safe at home: Yes Do you feel safe in your relationship?: Yes History History 1 Para 0 Hx # Term Pregnancies 0 Multiple births 0 Hx # Pregnancies 0 Ectopic pregnancies 0 AB induced 0 Hx Number of Living Children 0 AB spontaneous 0 Meds Allergies and Home Medications Allergies Allergy/AdvReac Type Severity Reaction Status Date / Time No Known Allergies Allergy Unverified 07/18/22 14:40 Home Medications Medication Instructions Recorded Confirmed Type albuterol sulfate 90 mcg/actuation 2 puff inhalation Q4H PRN 04/06/22 06/10/22 Rx aerosol inhaler (Ventolin HFA) shortness of breath or wheezing #8.5 grams omeprazole 20 mg capsule,delayed 20 mg PO DAILY #60 caps 04/15/22 06/10/22 Rx release vitamins with calcium 1 tab PO DAILY #90 tabs 05/10/22 06/10/22 Rx no.72-iron 29 mg-folic acid 1 mg tablet ( Plus) nicotine 7 mg/24 hr daily 1 patch transdermal Q24H #14 ea 05/11/22 06/10/22 Rx transdermal patch [id number] fum 28 mg 1 cap PO DAILY #90 caps 06/10/22 06/10/22 Rx iron-folic acid 1 mg-omg3 200 mg capsule (C-Kragi DHA) Exam Constitutional Constitutional: moderate distress Comments: Debra arrived ambulatory from ED. She was placed in room 302 for triage but was bearing down with contractions upon arrival. A GBS swab was obtained and SVE performed. Vertex was noted at + 2 station and 10 CMs dilated Detailed Labor and Delivery Exam Dilation: 10 station: +2 Alcantara Score: Cervical Points Exam 0 1 2 3 Dilation Closed 1-2cm 3-4 cm 5-6cm Effacement 0-30% 40-50% 60-70% 80% Consistency Firm Medium Soft Station -3 -2 -1,0 +1,+2 Position Posterior Mid Anterior Amniotic Membrane Status: Ruptured Rupture Method: Spontaneous Amniotic Fluid: Clear Monitor Mode: External Contraction Frequency(min): every3 Contraction Duration(sec): 50 Contraction Intensity: Strong Fetus A Heart Rate Baseline: 140 Monitor Accelerations: 15 X 15 Monitor Decelerations: Variable Variability: Moderate (6-25 BPM) Categories: Category II Date of Membrane Rupture: 07/23/22 Time of Membrane Rupture: 10:30 Abdominal Exam Abdominal Exam: Normal Exam Exam: Normal Extremities Exam Extremities Exam: Normal Skin Exam Skin Exam: Normal Results Results Group Beta Strep: Done-Result Unknown Blood Type: O+ Rubella Status: Immune Varicella Immunity: Nonimmune Risk Assessment Risk for Shoulder Dystocia Historical/Initial OB: NEGATIVE FOR: Pelvic Abnormality, Pre- BMI>30, Previous Shoulder Dystocia or Previous Macrosomia Risk for Pre-Eclampsia Date Initiated/Initials: not indicated, jk Yes, if one or more: NEGATIVE FOR: Hx Pre-E/Gest HTN, Chronic HTN, Multiple Gestation, Pre-gestational DM, Renal Disease, Systemic Lupus or APA Syndrome Yes, if 2 or more: POSITIVE FOR: Nulliparity; NEGATIVE FOR: Age>= 35 yrs, >10yr btwn pregnancies, BMI>30, ethinicty, Mother/Sister w/ Pre-E or Previous IUGR Risk for Post- Hemorrhage Initial: NEGATIVE FOR: Multiple Gestation, Previous PPH, Known Clotting Deficiency, Grand Multiparity or Anticoagulation Risks Reviewed Risks Reviewed Upon Admission: Yes
--- NOTE | 2022-07-23 12:08 | W.OBDELIVERY ---
Date of service: 07/23/22 Time of Service: 12:08 OB Labor/ Delivery Information Baby A Delivery Delivery Method: Spontaneaous Presentation: Cephalic Vertex Position: Left Occipital Anterior Cord Description Comment: normal Amniotic Fluid: Clear Estimated Blood Loss: 300 Delivery Outcome: Liveborn Infant Transferred: Remains with Mother (on isolette breathing spontaneously on cpap, [facility] [place] route) Note: Debra was bearing down with contractions on admission. She reported ROM at 1030 this morning while she was in bed and contractions all night which she thought were jerome bob. She did not call to report the contractions. She was transferred to room 301 and preparations were made for delivery. FHTs 140s in second stage with variable decelerations associated with contractions. Second stage huddle was done. Spontaneous delivery of female delivered in ROBERT position. Baby was placed on mother's abdomen and dried and stimulated. She had a spontaneous cry. Cord was clamped and cut by me and the baby was transferred immediately to the warmer under Dr Rojas's care. The placenta delivered spontaneously and appears to by intact with a three vessel cord. Pitocin 30 units IV was administered before delivery of the placenta. The perineum was inspected and there was a right labial laceration which was not bleeding and was not repaired. After delivery, Mother was stable and bonding with her baby on the infant warmer in the delivery room and there were no complications. Cord blood gasses were obtained and sent. The placenta will be sent to pathology. Providers Nurse Case Fitter: Aranza Robertson Aquatics Specialist: Katherine Rojas Nurse: Adrienne Lambert Nurse: Antonieta Longoria Labor/Delivery Information Number of Babies in Womb: 1 Steroids Given: None Reason Steroids Not Administered: Imminent Delivery Group Beta Strep: Done-Result Unknown Antibiotics Administered: Yes Rubella Status: Immune Blood Type: O+ Varicella Immunity: Nonimmune Shoulder Dystocia: No Stages of Labor Onset of Labor Date: 07/23/22 Onset of Labor Time: 04:00 Complete Dilatation Date: 07/23/22 Complete Dilatation Time: 11:00 Labor - Stage 1 Duration: 7 hours and 0 minutes ROM Baby A: 07/23/22 ROM Baby A: 10:30 ROM Total Time- Baby A: [id number] Infant Delivery Date-Baby A: 07/23/22 Delivery Time-Baby A: 11:19 Labor Stage 2 Duration: 19 minutes Placenta Delivery Date-Baby A: 07/23/22 Placenta Delivery Time-Baby A: 11:27 Labor-Stage 3 Duration: 8 minutes Total Length of Labor-Baby A: 7 hours and 19 minutes Placenta Status: Delivered Baby A Infant Gender: Female Gestational Status: (<34 wks) Gestational Age in Weeks/Days: 31 Weeks and 1 Days weight: 4 lb 0.904 oz
[2022-07-23 12:12] LABS: HCT 36.1 % (36.0-46.0); HGB 11.8 g/dL (11.2-15.7); MCH 29.2 pg (27.0-33.0); MCHC 32.7 % (32.0-36.0); MCV 89 fL (80-95); MPV 11.8 fL (8.0-11.0); Platelet Count 262 10^3/uL (130-400); RBC 4.04 10^6/uL (3.93-5.22); RDW 12.6 % (11.7-14.6); WBC 17.26 10^3/uL (4.4-10.8)
[2022-07-23 12:21] LABS: Source Nasal/Nares
[2022-07-23] MEDS: Calcium Carbonate *TUMS* 500 MG CHEW 1000 MG PO (12:35)
[2022-07-23] MEDS: Acetaminophen 325 MG TAB 650 MG PO (12:35)
[2022-07-23 13:11] LABS: COVID-19 PCR POSITIVE (Negative)
--- NOTE | 2022-07-23 13:45 | PLAC_PTH ---
PATIENT: Debra Draper LOC: [facility] U#:[id number] AGE/SX: 21/F ROOM: OBS.301 RE07/23/[address]: Aranza Robertson : 2000 BED: A DIS: 07/23/2022 SPEC #: [id number] RECD: 07/25/22 12:38 STATUS: NAHID REQ #: [id number] GRADY: 07/23/22 13:[address]: Aranza Robertson DEPT: Surgical Specimen RECD BY: Josiane Noriega ENTERED: 07/25/22 12:39 SP TYPE: PLAC OTHR DR: Lennie Dave Tissues: 1 - PLACENTA (3RD TRIMESTER) Procedures: GROSS AND MICRO LEVEL 5 Comments: [id number]
--- NOTE | 2022-07-23 14:32 | W.PM.OBDISCH ---
Date of service: 07/23/22 Time of Service: 14:32 DS: Diagnosis Discharge Diagnosis (1) delivery, delivered: Status: Acute Asessment and Plan: S/P precipitous labor and of baby girl at 31 +1 weeks gestation, right labial laceration not requiring repair. Debra was able to hold her baby prior to transfer to [facility] with the neonatology team. Pain is managed well with oral analgesics. Voiding without difficulty. planned and Debra will begin pumping milk. UDS and buprenorphine screening sent. Omeprasole prescribed with TUMS for hearturn A - stable mother and baby transferred to [facility] for care, Post day of delivery, Heartburn P - Transfer by ambulance to [facility] to be near her infant, continuation of post care at [facility]. [facility] at 2 and 6 weeks. Permits signed for transfer. We are awaiting word from [facility] about transfer possibility today. (2) Smoker: Status: Acute Asessment and Plan: Debra requests nicotine patch at this time. 7 mg patch was ineffective during and 14 mg patch was prescibed today. Discharge Plan Disposition Patient Disposition: Home Condition: Good Discharge Details Reason For Visit: NST Admit Date/Time: 07/23/22 11:50 Admit Provider: Aranza Robertson Attending Provider: Aranza Robertson Primary Care Provider: Lennie Dave Home Meds and New Rx's Prescriptions: Continued albuterol sulfate [Ventolin HFA] 90 mcg/actuation HFA aerosol inhaler 2 puff inhalation Q4H PRN (Reason: shortness of breath or wheezing) Qty: 8.5 4RF Plus 29 mg iron- 1 mg tablet 1 tab PO DAILY Qty: 90 3RF Discontinued nicotine 7 mg/24 hr patch 24 hour 1 patch transdermal Q24H Qty: 14 6RF C-Kraig DHA 28 mg iron-1 mg -200 mg capsule 1 cap PO DAILY Qty: 90 2RF Rx Instructions: please fill generically with medicaid approved vitamin No Action omeprazole 20 mg capsule,delayed release(DR/EC) 20 mg PO DAILY Qty: 60 4RF Discharge Instructions Activity:: Activity as Tolerated Equipment/Supplies:: No Equipment Needed Diet:: As Tolerated Discharge Orders Discharge Orders: Discharge Order (Routine); Ordered 07/23/22 Ordered By: Aranza Robertson OB:DS Summary Summary Vaginal Delivery Method: Spontaneaous Contraception Discussed Contraception Discussed: No, Gender-Baby A: Female weight: 4 lb 0.904 oz Status at Discharge Functional status at discharge: independent ambulation Overall status at discharge: patient is back to baseline Mental Status: mental status grossly normal Speech and Movement: speech and movement normal Mood: anxious mood Affect: other (Debra was redirected to focus on baby prior to transfer and away from phone) Exam Physical Exam Vital Signs Reviewed: Yes Constitutional Constitutional: mild distress Comments: requests to go outside for a cigarette. Respiratory Exam Respiratory Exam: Normal Cardiovascular Exam Cardiovascular Exam: Normal Fundal Exam Fundus: Below Umbilicus and Firm Extremities Exam Extremity Exam: Normal Skin Exam Skin Exam: Normal Psychiatric Exam Psychiatric Exam: Normal PFSH All Active Problems (Updated 07/23/22 @ 14:36 by Aranza Robertson CNM) delivery, delivered (Acute) labor in third trimester (Acute) Abdominal pain (Acute) COVID-19 affecting in third trimester (Acute) BMI 29.0-29.9,adult (Acute) Anti-TPO antibodies present (Acute) Elevated TSH (Acute) Susceptible to varicella (non-immune), currently (Acute) Depression (Chronic) ADHD, predominantly hyperactive type (Acute) Dx since childhood, no meds since age 12 Hypothyroidism (Chronic) Elevated TSH w/nml T4 Exercise-induced asthma (Acute) Anxiety (Chronic) Marijuana use (Acute) Smoker (Acute) (Acute) Migraine (Chronic) Medical History (Updated 07/23/22 @ 14:36 by Aranza Robertson CNM) ADHD Chronic GERD Family history of alpha 1 antitrypsin deficiency Pt's mother and sister Family history of hemochromatosis Father of baby's family High risk HPV infection Lactose intolerance Obesity BMI 29 at beginning pf Vaginal Pap smear with LGSIL Surgical History No significant past surgical history Family History (Updated 03/23/22 @ 10:54 by Aranza Emanuel CNM) Self Asthma Depression No meds ever Mother Alpha 1-antitrypsin PiMS phenotype Sister Alpha 1-antitrypsin PiMS phenotype Paternal Grandfather Diabetes Social History Smoking/Tobacco Use Status: Current every day Tobacco Type: cigarettes Smoking packs per day: 0.5 Smoking cigarettes per day: 10.0 Tobacco: How many years used: 6 Quit status: considering quitting Smoking risk assessment performed?: Yes Alcohol Intake: current Alcohol Intake frequency: holidays/special occasions only Drug use: Daily Substance use type: marijuana Do you feel safe at home: Yes Do you feel safe in your relationship?: Yes History History 1 Para 0 Hx # Term Pregnancies 0 Multiple births 0 Hx # Pregnancies 0 Ectopic pregnancies 0 AB induced 0 Hx Number of Living Children 0 AB spontaneous 0 DS: Data Data Completed and Pending Labs on day of discharge: Labs from last 24 hours 07/23/22 07/23/22 07/23/22 12:10 12:04 12:04 WBC 17.26 H RBC 4.04 Hgb 11.8 Hct 36.1 MCV 89 MCH 29.2 MCHC 32.7 RDW 12.6 Plt Count 262 MPV 11.8 H COVID-19 Source Nasal/Nares SARS-CoV-2 (PCR) POSITIVE A* Patient ABO/Rh O Positive Antibody Screen NEGATIVE
[2022-07-23] MEDS: Dibucaine 1% 28 GM TUBE TP (14:39)
[2022-07-23] MEDS: Hamamelis Leaf/Glycerin 100 EACH BOX PR (14:39)
[2022-07-23] MEDS: Nicotine 14 MG/24 HR PATCH TD (15:05)
[2022-07-23 17:40] LABS: *AMPHETAMINES SCREEN URINE Negative (Negative); *BARBITURATES SCREEN URINE Negative (Negative); *BENZODIAZEPINES SCREEN URINE Negative (Negative); Cannabinoids THC Positive (Negative); Cocaine Screen,Urine Negative (Negative); METHADONE URINE SCREEN Negative (Negative); OPIATES URINE SCREEN Negative (Negative); Tricyclic Antidepressants Negative (Negative)
[2022-07-28 12:38] LABS: Buprenorphine Negative ng/mL (Cutoff: 5.0); Norbuprenorphine Negative ng/mL (Cutoff: 2.5)
== END 2022-07-23 16:05 | disposition short-term general hospital (02) | DRG 806 ==
LOC: OBS 12:27
PROVIDERS: Admitting Provider Advanced Practice Midwife; PCP Nurse Practitioner Family; Visit Provider Advanced Practice Midwife
DX: O60.14X0 Preterm labor third trimester with preterm delivery third trimester, not applicable or unspecified (principal); O99.324 Drug use complicating childbirth; Z37.0 Single live birth; O99.354 Diseases of the nervous system complicating childbirth; O99.334 Smoking (tobacco) complicating childbirth; F17.210 Nicotine dependence, cigarettes, uncomplicated; F12.90 Cannabis use, unspecified, uncomplicated; O99.344 Other mental disorders complicating childbirth; F41.8 Other specified anxiety disorders; O99.284 Endocrine, nutritional and metabolic diseases complicating childbirth; E03.9 Hypothyroidism, unspecified; Z3A.31 31 weeks gestation of pregnancy; J45.990 Exercise induced bronchospasm; G43.909 Migraine, unspecified, not intractable, without status migrainosus; O99.52 Diseases of the respiratory system complicating childbirth; O99.214 Obesity complicating childbirth; K21.9 Gastro-esophageal reflux disease without esophagitis; F90.1 Attention-deficit hyperactivity disorder, predominantly hyperactive type; O99.62 Diseases of the digestive system complicating childbirth; O70.0 First degree perineal laceration during delivery
CPT/HCPCS: 36415; 80307; 80348; 85027; 86850; 86900; 86901; 87635; 87081; 88307; J2540

== ENCOUNTER 2022-09-08 15:59 | Outpatient (REF) | payer MEDICAID, SELFPAY | END 2022-09-08 16:00 | disposition home or self-care (01) | LOC: LBN 15:59 | PROVIDERS: PCP Nurse Practitioner Family; Visit Provider Advanced Practice Midwife | DX: R31.9 Hematuria, unspecified (principal); Z39.2 Encounter for routine postpartum follow-up | CPT/HCPCS: 87086 ==

== ENCOUNTER 2023-10-04 05:15 | Outpatient (CLI) | payer MEDICAID, SELFPAY ==
[2023-10-04 14:34] LABS: Panorama Kit Sent via Fed Ex
[2023-10-04 14:37] LABS: Abs Immature Grans 0.04 10^3/uL (0.0-0.06); Absolute Basophil Count 0.04 10^3/uL (0.0-0.2); Absolute Eosinophil Count 0.27 10^3/uL (0.0-0.7); Absolute Lymphocyte Count 2.56 10^3/uL (1.2-3.4); Absolute Monocyte Count 0.55 10^3/uL (0.1-0.8); Absolute Neutrophil Count 6.33 10^3/uL (1.2-6.7); Basophils % 0.4 %; Eosinophils % 2.8 %; HCT 38.6 % (36.0-46.0); HGB 13.3 g/dL (11.2-15.7); Immature Grans % 0.4 %; Lymphocytes % 26.1 %; MCHC 34.5 % (32.0-36.0); MCV 87 fL (80-95); MPV 11.7 fL (8.0-11.0); Monocytes % 5.6 %; Neutrophils % 64.7 %; Platelet Count 272 10^3/uL (130-400); RBC 4.43 10^6/uL (3.93-5.22); RDW-SD 41.2 fL; WBC 9.79 10^3/uL (4.4-10.8)
[2023-10-04 15:14] LABS: TSH (W/Ref FT4) 3.18 uIU/mL (0.36-3.74)
[2023-10-04 23:36] LABS: HIV-1/2 Ag & Ab Screen Negative (Negative)
[2023-10-04 23:48] LABS: Hepatitis B Surface Ag Negative (Negative)
[2023-10-05 00:18] LABS: Hepatitis C Ab w Rflx HCV PCR Negative (Negative)
[2023-10-05 09:35] LABS: Rubella IgG Ab (UVM) Positive (See Note)
[2023-10-05 11:23] LABS: Varicella IgG Antibody Positive (See Note)
[2023-10-05 23:26] LABS: Syphilis IgG w/Reflex Nonreactive (Nonreactive)
== END 2023-10-04 05:16 | disposition home or self-care (01) ==
LOC: LBO 05:15
PROVIDERS: PCP Nurse Practitioner Family; Visit Provider Advanced Practice Midwife
DX: Z34.91 Encounter for supervision of normal pregnancy, unspecified, first trimester (principal); Z3A.11 11 weeks gestation of pregnancy
CPT/HCPCS: 36415; 86787; 86803; 86850; 86900; 86901; 87340; 87389; 84443; 85025; 86762; 86780

== ENCOUNTER 2023-10-04 13:52 | Outpatient (REF) | payer MEDICAID, SELFPAY ==
[2023-10-05 14:26] LABS: Chlamydia Result Negative (Negative); GC Result Negative (Negative)
== END 2023-10-04 13:53 | disposition home or self-care (01) ==
LOC: LBN 13:52
PROVIDERS: PCP Nurse Practitioner Family; Visit Provider Advanced Practice Midwife
DX: Z34.91 Encounter for supervision of normal pregnancy, unspecified, first trimester (principal); B96.89 Other specified bacterial agents as the cause of diseases classified elsewhere
CPT/HCPCS: 87491; 87591; 87086; 87480; 87510; 87660

== ENCOUNTER → 2023-12-21 01:33 | Outpatient (CLI) | payer MEDICAID, SELFPAY ==
--- NOTE | 2023-12-21 07:45 | DI.US_ITS ---
Exam(s) US OB 2-3 TRIMESTER EXAM: US OB 2-3 TRIMESTER CLINICAL HISTORY: cervical length with morphology,z34.90,h/o delivery. TECHNIQUE: Transabdominal obstetrical ultrasound was performed. COMPARISON: US POCUS EXAM from 09/08/2023 FINDINGS: There is a single viable intrauterine gestation with cardiac activity identified-137 bpm. Amniotic fluid: There is a normal amount of amniotic fluid. Placental location: The placenta is anterior grade 1,with no evidence of placenta previa.Distance fro m the tip of the placenta to the internal cervical os is 4.1 cm. CERVICAL LENGTH: A length is measured at 3.6 cm. The endocervical canal is closed. ANATOMY: A 3 vessel umbilical cord is seen. A four-chamber cardiac view was obtained. Tiny hyperechoic focus is noted in the heart on the four-c hamber view adjacent to the interventricular septum. Left ventricular outflow tract and aortic arch appear satisfactory. Right ventricular outflow tract was not able to be adequately seen on today's study. There are no obvious abnormalities of the spinal column evident. There is no obvious abnormal ity of the anterior abdominal wall. stomach and urinary bladder are identified and there is no evidence of hydronephrosis. nose, lips and palate were not able to be adequately identified on today's study. facial profile was also not visualized. No choroid plexus cysts seen. Somewhat less than adequate visualization of the tibia-fibula due to insistent motion. Dating parameters place this at approximately 22 weeks and 6 days gestational age. BPD measures 23 weeks and 4 days HC measures 23 weeks and 4 days AC measures 22 weeks and 6 days FL measures 22 weeks and 6 days Estimated weight is 550 gm-1 pound, 3 ounces Fetus is at the 48th percentile on the Hadlock scale. IMPRESSION:: Single viable intrauterine gestation which is approximately 22 weeks and 6 days gestati onal age, implying an DONALDO of 04/16/2024. There are no obvious anomalies evident on today's study. However, please note that this patient requires returning for better visualization of the facial features as described above as well as the tibia fibula as well as cord insertion and cardiac right ventricular outflow tract . These were not adequately imaged on today's study. The placenta is anterior with no evidence of placenta previa. There is a normal amount of amniotic fluid. DATA REPOSITORY:
== END ==
PROVIDERS: PCP Nurse Practitioner Family; Visit Provider Obstetrics & Gynecology Gynecology
DX: O09.892 Supervision of other high risk pregnancies, second trimester (principal); Z3A.22 22 weeks gestation of pregnancy
CPT/HCPCS: 76805

== ENCOUNTER → 2023-12-25 00:37 | Outpatient (CLI) | payer MEDICAID, SELFPAY ==
--- NOTE | 2023-12-25 | DI.US_ITS ---
Exam(s) US OB F/U FACIAL/LVOT/RVOT EXAM: US OB F/U FACIAL/LVOT/RVOT CLINICAL HISTORY: F/U SURVEY,FACIAL,TIB-FIB,CORD INSERTION, CARDIAC OUTFLOW BETTER. TECHNIQUE: Transabdominal obstetrical ultrasound was performed. COMPARISON: US US OB 2-3 TRIMESTER from 12/21/2023 FINDINGS: Patient has returned for follow-up to the recent incomplete congenital anomaly survey of 12/21/2023 ( see that separate report) There is again noted a single viable intrauterine gestation with cardiac activity identified-14 4 bpm The fetus is presently in cephalic position . Amniotic fluid: There is a normal amount of amniotic fluid. Placental location: The placenta is anterior grade 1,with no evidence of placenta previa. Dating parameters not performed today. ANATOMY: facial profile, nose/lips, palate views all obtained on today's study and appear unremarkable. cardiac right ventricular outflow tract was also able to be visualized. Four-chamber cardiac view was again performed than the previously described small hyperechoic intra v entricular focus is no longer seen. tibia-fibula remarkable. cord insertion appears unremarkable. IMPRESSION:: Viable intrauterine gestation, as described above. These additional images obtained to day complete the anomaly survey. There are no obvious congenital defects evident DATA REPOSITORY:
== END ==
PROVIDERS: PCP Nurse Practitioner Family; Visit Provider Obstetrics & Gynecology Gynecology
DX: Z36.89 Encounter for other specified antenatal screening (principal)
CPT/HCPCS: 76815

== ENCOUNTER 2024-01-20 15:46 | Outpatient (CLI) | payer MEDICAID, SELFPAY ==
[2024-01-20] VITALS (10 sets, daily range): BP systolic 103–128; BP diastolic 55–97; PULSE 72–103; RESP 16; TEMP 36.4–36.6; O2SAT 97–99
[2024-01-20 16:21] LABS: Bilirubin Negative (Negative); Blood Negative (Negative); Clarity Clear (Clear); Glucose Negative (Negative); Ketones Negative (Negative); Leukocyte Esterase Moderate (Negative); Nitrite Negative (Negative); Urobilinogen 0.2 mg/dL (Up to 0.2)
[2024-01-20 16:28] LABS: Bacteria Rare HPF (Negative); C & S Indicated? No/Sq. Contamination; Crystals Negative HPF (Negative); Epithelial Cells Moderate HPF (Negative); Mucus Negative (Negative); RBC Negative HPF (0-2)
--- NOTE | 2024-01-20 17:08 | W.PM.OBHPL1 ---
Date of service: 01/20/24 Time of Service: 18:20 Assessment and Plan Assessment and plan (1) labor in second trimester: Status: Acute Assessment and plan: P1 @27.1wks GA with e/o labor given contractions and cervical dilation. H/o 31wk delivery. FHT Cat 1. Cephalic presentation. Tertiary center contacted for transfer, appropriate people notified. Will treat with Betamethasone (first dose:17:30), Nifedipine 20mg PO, Magnesium sulfate 4g loading dose. GBS and vag path swabs collected and pending. OB-HPI Labor/Delivery History of Present Illness Reason for Visit: NST Chief Complaint: Suspected Labor. DONALDO Calculator Estimated Delivery Date Method Current WG Current Estimate 04/19/24 Ultrasound #1 27w 1d History of Present Expected Delivery Route/Plan BRIAN - (hx PTD) BB Specific Issues/Plan 1. History of PTD 31 weeks - Referred [facility] [place] [facility]. 12/18/23: never made it. - 12/18/23: Morphology u/s at [facility] with cervical length ordered but pt never scheduled. 2. Vaginal pathogen bhavesh & BV+, treated 3. Fam history of Hemochromatosis, PTD 4. Anxiety/depression: [facility] 10/31/23 cancelled. 12/18/23. No psych intake yet Pap UTD, GC/CT are neg cfDNA=low risk male, CF previously negative, declines SMA and AFP Narrative: Pt called to report her stomach hurting all over. She says it has been going on for about 3 days but she is feeling worse today. She reports diarrhea and nausea/vomiting. Increased urinary frequency. No bleeding or LOF. Feeling good movement. Review of Systems Constitutional Constitutional: Reports system reviewed and no additional complaints, except as documented Genitourinary Genitourinary: Reports system reviewed and no additional complaints, except as documented Musculoskeletal Comments: No regular contractions PFSH All Active Problems (Updated 01/20/24 @ 17:24 by Zakiya Dahl MD) labor in second trimester (Acute) History of delivery, currently (Acute) Low back pain (Acute) Economic stress (Acute) Abdominal pain (Acute) Anti-TPO antibodies present (Acute) ADHD, predominantly hyperactive type (Acute) Dx since childhood, no meds since age 12 Exercise-induced asthma (Acute) Anxiety (Chronic) Marijuana use (Acute) Smoker (Acute) (Acute) Depression (Chronic) Migraine (Chronic) Medical History (Updated 01/20/24 @ 17:24 by Zakiya Dahl MD) Elevated TSH Hypothyroidism Elevated TSH w/nml T4 Family history of alpha 1 antitrypsin deficiency Pt's mother and sister Family history of hemochromatosis Father of baby's family High risk HPV infection Vaginal Pap smear with LGSIL Lactose intolerance Chronic GERD Obesity BMI 29 at beginning pf Surgical History No significant past surgical history Family History Self Asthma Depression No meds ever Mother Alpha 1-antitrypsin PiMS phenotype Sister Alpha 1-antitrypsin PiMS phenotype Paternal Grandfather Diabetes Social History Smoking/Tobacco Use Status: Current every day Tobacco Type: cigarettes Smoking packs per day: 0.5 Smoking cigarettes per day: 10.0 Tobacco: How many years used: 6 Quit status: considering quitting Counseling given: provider counseling (offerred wellbutrin for mood and smoking cessation and Debra would like to try it. ) Smoking risk assessment performed?: Yes Alcohol Intake: current Alcohol Intake frequency: holidays/special occasions only Drug use: Daily Substance use type: marijuana Housing: house Do you feel safe at home: Yes Do you feel safe in your relationship?: Yes History History 2 Para 1 Hx # Term Pregnancies 0 Multiple births 0 Hx # Pregnancies 1 Ectopic pregnancies 0 AB induced 0 Hx Number of Living Children 1 AB spontaneous 0 Past Pregnancies Del. Date GA/Weeks # Preg Succ Route Wgt Sex Labor Lgth Anesthesia Location Prov Complic 07/23/22 31 No Yes vaginal 4 lb 0.9 oz Female 7hrs 19min DARRYL Anders Delivery Date: 07/23/22 Last Updated by: AVILA Pastor Allergies and Home Medications Allergies Allergy/AdvReac Type Severity Reaction Status Date / Time No Known Allergies Allergy Verified 01/20/24 17:15 Home Medications ?Medication ?Instructions ?Recorded ?Confirmed ?Type albuterol sulfate 90 mcg/actuation 2 puff inhalation Q4H PRN 08/21/23 12/18/23 Rx aerosol inhaler (Ventolin HFA) shortness of breath or wheezing #8.5 grams vits,calcium no.78-iron 1 tab PO DAILY #90 tabs 08/21/23 12/18/23 Rx fumarate-folic acid 29 mg-1 mg tablet esomeprazole magnesium 40 mg 40 mg PO DAILY #60 caps 12/18/23 12/18/23 Rx capsule,delayed release (Nexium) Exam Physical Exam Vital signs: Pulse BP 72 125/65 01/20/24 16:07 01/20/24 16:07 Vital Signs Reviewed: Yes Detailed Labor and Delivery Exam Dilation: 1 Effacement (%): 80 station: -3 Cervix position: mid Consistency: soft Alcantara Score: Cervical Points Exam 0 1 2 3 Dilation Closed 1-2cm 3-4 cm 5-6cm Effacement 0-30% 40-50% 60-70% 80% Consistency Firm Medium Soft Station -3 -2 -1,0 +1,+2 Position Posterior Mid Anterior Amniotic Membrane Status: Intact Fetus A Heart Rate Baseline: 125 Monitor Accelerations: 15 X 15 Monitor Decelerations: None Variability: Moderate (6-25 BPM) Detailed HEENT Exam Head: Present normocephalic and atraumatic Detailed Abdominal Exam Comments: gravid Detailed Exam Comments: Moderate creamy yellow discharge. Vag path and GBS swab collected. No e/o rupture of membranes. Cervix recheck at 17:55, 1hr after first exam and it was essentially unchanged. Detailed Neurological Exam Neurological: Present alert, oriented X3 and CN II-XII intact DetailedPsychiatric Exam Psychiatric: Present normal affect, normal thought process and cooperative Additional findings Additional findings: Cephalic presentation by bedside sono. Results Results Group Beta Strep: Done-Result Unknown Blood Type: O+ Rubella Status: Immune Varicella Immunity: Immune Abnormal Lab Findings: Abnormal Labs 01/20/24 16:05 Ur Leukocyte Esterase Moderate H Urine WBC 10-20 H Risk Assessment Risk for Shoulder Dystocia Historical/Initial OB: NEGATIVE FOR: Pelvic Abnormality, Pre- BMI>30, Previous Shoulder Dystocia or Previous Macrosomia Increased Risk?: No Risk for Pre-Eclampsia Daily Dose ASA Indicated: No Date Initiated/Initials: not indicated, jk Yes, if one or more: NEGATIVE FOR: Hx Pre-E/Gest HTN, Chronic HTN, Multiple Gestation, Pre-gestational DM, Renal Disease, Systemic Lupus or APA Syndrome Yes, if 2 or more: NEGATIVE FOR: Nulliparity, Age>= 35 yrs, >10yr btwn pregnancies, BMI>30, ethinicty, Mother/Sister w/ Pre-E or Previous IUGR Risk for Post- Hemorrhage Initial: NEGATIVE FOR: Multiple Gestation, Previous PPH, Known Clotting Deficiency, Grand Multiparity or Anticoagulation At Risk?: No Risks Reviewed Risks Reviewed Upon Admission: Yes
[2024-01-20] MEDS: MAGNESIUM SULFATE 4 GM/100 ML BAG 25 GM (17:19)
[2024-01-20] MEDS: NIFEdipine 10 MG CAP 20 MG PO (17:32)
[2024-01-20] MEDS: Betamet Acet/Betamet Na Ph Inj. 30 MG/5 ML 12 MG IM (17:33)
--- NOTE | 2024-01-20 18:48 | NUR.NOTE ---
Pt up to void at 1830. Consents for tranfer signed. Pt feeling hot but CTX are less painful. FHR CAT I. Ambulance here at 1850. Report given to receiving nurse Joseline at [facility] Note:
--- NOTE | 2024-01-26 12:00 | W.OBNST ---
Date of service: 01/20/24 Time of Service: 18:00 NST Evaluation Reason for NST Reasons for Nonstress Test: DECREASED MOVEMENT and OTHER, SEE COMMENT Reason for NST Other: vomiting and diarrhea for 3 days Gestational Age Gestational Age in Weeks and Days: 27 Weeks and 1Days Test and Monitor Explained Test/Monitor Explained: Test Explained Vital Signs Blood Pressure: 125/65 Pulse: 72 Temperature: 97.5 F NST Information Date on Monitor: 01/20/24 Time on Monitor: 16:05 NST Interventions: IV Fluids Contraction Frequency: 3 NST Evaluation Patient States Movement: Present Variability: Moderate 6-25 bpm Note Ultrasound Done: N/A. NST Note NST Reviewed and Verified by: Zakiya Dahl
[2024-01-26 12:01] VITALS: BP 125/65; PULSE 72; TEMP 36.4
== END 2024-01-20 18:59 ==
LOC: BCD 15:46 → OBS 15:57 → BCD 15:58 → OBS 16:03
PROVIDERS: PCP Nurse Practitioner Family; Visit Provider Obstetrics & Gynecology
DX: O36.8120 Decreased fetal movements, second trimester, not applicable or unspecified (principal); Z3A.27 27 weeks gestation of pregnancy
CPT/HCPCS: 59025; 96360; 96361; 96365; 81003; 81015; 87081; G0378; J0702; J3475; J3490

== ENCOUNTER 2024-01-31 03:49 | Outpatient (CLI) | payer MEDICAID, SELFPAY ==
[2024-01-31 15:26] LABS: HCT 39.3 % (36.0-46.0); HGB 13.3 g/dL (11.2-15.7); MCH 30.9 pg (27.0-33.0); MCHC 33.8 % (32.0-36.0); MCV 91 fL (80-95); MPV 11.8 fL (8.0-11.0); Platelet Count 252 10^3/uL (130-400); RBC 4.31 10^6/uL (3.93-5.22); RDW 12.5 % (11.7-14.6); RDW-SD 41.2 fL; WBC 14.55 10^3/uL (4.4-10.8)
[2024-01-31 15:45] LABS: Glucose,1 Hr (Glucola) 115 mg/dL (80-140)
== END 2024-01-31 03:50 | disposition home or self-care (01) ==
LOC: LBO 03:49
PROVIDERS: PCP Nurse Practitioner Family; Visit Provider Obstetrics & Gynecology
DX: Z34.93 Encounter for supervision of normal pregnancy, unspecified, third trimester (principal)
CPT/HCPCS: 36415; 82950; 85027

== ENCOUNTER 2024-02-07 15:45 | Outpatient (CLI) | payer MEDICAID, SELFPAY ==
[2024-02-07] VITALS (8 sets, daily range): BP systolic 107–119; BP diastolic 59–69; PULSE 71–84; RESP 14; TEMP 36.5–36.6; O2SAT 96–98
[2024-02-07] MEDS: Lactated Ringers 500 ML 1000 ML IV (16:51)
[2024-02-07 16:54] LABS: HCT 37.2 % (36.0-46.0); HGB 12.6 g/dL (11.2-15.7); MCH 30.8 pg (27.0-33.0); MCHC 33.9 % (32.0-36.0); MCV 91 fL (80-95); MPV 11.3 fL (8.0-11.0); Platelet Count 223 10^3/uL (130-400); RBC 4.09 10^6/uL (3.93-5.22); RDW 12.4 % (11.7-14.6); RDW-SD 41.1 fL
[2024-02-07] MEDS: Normal Saline Flush 10 ML SYR IVP (17:00)
[2024-02-07] MEDS: Ondansetron 4 MG/2 ML VIAL IVP (17:15)
[2024-02-07 18:38] LABS: Bilirubin Negative (Negative); Blood Negative (Negative); Clarity Clear (Clear); Glucose Negative (Negative); Ketones Negative (Negative); Leukocyte Esterase Trace (Negative); Nitrite Negative (Negative); Specific Gravity 1.015 (1.005-1.025); Urobilinogen 0.2 mg/dL (Up to 0.2); pH 7.5 (5-8)
[2024-02-07 18:44] LABS: Bacteria Negative HPF (Negative); C & S Indicated? No; Crystals Negative HPF (Negative); Epithelial Cells Few HPF (Negative); Mucus Negative (Negative); RBC Negative HPF (0-2); WBC 0-2 HPF (0-5)
--- NOTE | 2024-02-07 19:25 | W.PM.OBHPL1 ---
Date of service: 02/07/24 Time of Service: 19:25 Assessment and Plan Assessment and plan (1) contractions: Status: Acute (2) labor in second trimester: Status: Acute Assessment and plan: Patient has been accepted at [facility] and transfer has been arranged via ambulance. Dr. Patel Marcia attending and accepting provider. Qualifiers: labor delivery status: without delivery Qualified Code(s): O60.02 - labor without delivery, second trimester (3) History of delivery, currently : Status: Acute OB-HPI Labor/Delivery History of Present Illness Reason for Visit: IUP at 29w5d EGA, contractions Chief Complaint: Uterine Contractions. DONALDO Calculator Estimated Delivery Date Method Current WG Current Estimate 04/19/24 Ultrasound #1 29w 5d History of Present Expected Delivery Route/Plan - MD (hx PTD) BB Specific Issues/Plan 1. History of PTD 31 weeks (jul 2022): ROM and delivery shortly after arrival on L&D -01/20/24[place] [facility] [place] Rx Betamethasone, MgSO4, Nifedipine and discharged with no cervical change @ 2.5cm -Pt also treated for BV, yeast and a UTI. -Cx: on 01/25/24. 2. Vaginal pathogen bhavesh & BV+, treated 11/06/23. Tx'd again 01/22/24 3. Fam history of Hemochromatosis, PTD 4. Anxiety/depression: [facility] 10/31/23 cancelled. 12/18/23. No psych intake yet. Referred to see Malinda Siegel again - appt 01/30. 5. Tobacco use: would like to quit but doesn't feel like she can stop cold turkey. - Started patch 01/25/24 - Also using MJ once/twice daily for back pain and anxiety. Pap UTD, GC/CT are neg cfDNA=low risk male, CF previously negative, declines SMA and AFP Narrative: Pt presented for a scheduled visit this afternoon. She reported painful uterine contractions beginning earlier today accompanied by nausea, vomiting and acid reflux. No vaginal bleeding, no loss of amniotic fluid. Exam in [facility] office: 1.5%/ . On arrival for observation of Center IV LR bolus was administered along with 4mg Ondansetron. Pt was able to tolerate regular diet. She reported less awareness of contractions but repeat SVE: /-1. Vertex. [facility] [place] and [place] was trans[place] [facility]. Nifedipine 20mg PO administered at 1945. Magnesium Sulfate bolus was interrupted and discontinued. GBS RV Cx was obtained at time of previous [facility] and was negative. Informed Consent Informed Consent: Risk,Benefits,Alternatives Discussed (transport [place] [facility] [place] Review of Systems All systems reviewed & are unremarkable except as noted in HPI and below PFSH All Active Problems (Updated 02/07/24 @ 19:59 by Hanh Loving MD) contractions (Acute) labor in second trimester (Acute) History of delivery, currently (Acute) Low back pain (Acute) Economic stress (Acute) Abdominal pain (Acute) Anti-TPO antibodies present (Acute) Depression (Chronic) ADHD, predominantly hyperactive type (Acute) Dx since childhood, no meds since age 12 Exercise-induced asthma (Acute) Anxiety (Chronic) Marijuana use (Acute) Smoker (Acute) (Acute) Migraine (Chronic) Medical History (Updated 02/07/24 @ 19:59 by Hanh Loving MD) Elevated TSH Hypothyroidism Elevated TSH w/nml T4 Family history of alpha 1 antitrypsin deficiency Pt's mother and sister Family history of hemochromatosis Father of baby's family High risk HPV infection Vaginal Pap smear with LGSIL Lactose intolerance Chronic GERD Obesity BMI 29 at beginning pf Surgical History No significant past surgical history Family History Self Asthma Depression No meds ever Mother Alpha 1-antitrypsin PiMS phenotype Sister Alpha 1-antitrypsin PiMS phenotype Paternal Grandfather Diabetes Social History Smoking/Tobacco Use Status: Current every day Tobacco Type: cigarettes Smoking packs per day: 0.5 Smoking cigarettes per day: 10.0 Tobacco: How many years used: 6 Quit status: considering quitting Counseling given: provider counseling (offerred wellbutrin for mood and smoking cessation and Debra would like to try it. ) Smoking risk assessment performed?: Yes Alcohol Intake: current Alcohol Intake frequency: holidays/special occasions only Drug use: Daily Substance use type: marijuana Housing: house Do you feel safe at home: Yes Do you feel safe in your relationship?: Yes History History 2 Para 1 Hx # Term Pregnancies 0 Multiple births 0 Hx # Pregnancies 1 Ectopic pregnancies 0 AB induced 0 Hx Number of Living Children 1 AB spontaneous 0 Past Pregnancies Del. Date GA/Weeks # Preg Succ Route Wgt Sex Labor Lgth Anesthesia Location Prov Complic 07/23/22 31 No Yes vaginal 4 lb 0.9 oz Female 7hrs 19min DARRYL Anders Delivery Date: 07/23/22 Last Updated by: AVILA Pastor Allergies and Home Medications Allergies Allergy/AdvReac Type Severity Reaction Status Date / Time No Known Allergies Allergy Verified 02/07/24 14:58 Home Medications ?Medication ?Instructions ?Recorded ?Confirmed ?Type albuterol sulfate 90 mcg/actuation 2 puff inhalation Q4H PRN 08/21/23 02/07/24 Rx aerosol inhaler (Ventolin HFA) shortness of breath or wheezing #8.5 grams vits,calcium no.78-iron 1 tab PO DAILY #90 tabs 08/21/23 02/07/24 Rx fumarate-folic acid 29 mg-1 mg tablet esomeprazole magnesium 40 mg 40 mg PO DAILY #60 caps 12/18/23 02/07/24 Rx capsule,delayed release (Nexium) fluconazole 150 mg tablet 150 mg PO ONCE #2 tabs 01/25/24 02/07/24 Rx metronidazole 500 mg tablet 500 mg PO BID 01/25/24 02/07/24 History nicotine 7 mg/24 hr daily 1 patch transdermal Q24H #7 ea 01/25/24 02/07/24 Rx transdermal patch Allergy/Medication Comments:: Patient reports that she has not been taking the Nexium during this Exam Physical Exam Vital signs: Temp Pulse Resp BP Pulse Ox 97.9 F 76 14 115/66 96 02/07/24 18:58 02/07/24 18:58 02/07/24 18:58 02/07/24 18:58 02/07/24 18:58 Vital Signs Reviewed: Yes Constitutional Constitutional: no acute distress (Uterine contractions subsided after IV hydration and IV ondansetron) Detailed Labor and Delivery Exam Dilation: 3 Effacement (%): 90 station: -1 Cervix position: mid Consistency: soft Alcantara Score: Cervical Points Exam 0 1 2 3 Dilation Closed 1-2cm 3-4 cm 5-6cm Effacement 0-30% 40-50% 60-70% 80% Consistency Firm Medium Soft Station -3 -2 -1,0 +1,+2 Position Posterior Mid Anterior Amniotic Membrane Status: Intact Contraction Frequency(min): 3-4 Contraction Duration(sec): 40 Contraction Intensity: Mild Fetus A Heart Rate Baseline: 140 Monitor Accelerations: 10 X 10 Monitor Decelerations: None Variability: Moderate (6-25 BPM) Presentation: Cephalic Categories: Category I HEENT Exam HEENT Exam: Normal (wearing eyeglasses) Neck Exam Neck Exam: Normal Chest/Brest/Axilla Exam Chest Exam: Not Done Breast Exam Breast Exam: Not Done Respiratory Exam Respiratory Exam: Normal Cardiovascular Exam Cardiovascular Exam: Normal Abdominal Exam Abdominal Exam: Normal (No hepatosplenomegaly no tenderness) Rectal Exam Rectal Exam: Not Done Exam Exam: Normal (As above.) Extremities Exam Extremities Exam: Normal Back/Spine/Pelvis Exam Back Exam: Normal Pelvis Adequate: Yes Skin Exam Skin Exam: Normal Neurological Exam Neurological Exam: Normal Psychiatric Exam Psychiatric Exam: Normal (Patient accepts transfer to [facility].) Results Results Group Beta Strep: Negative Blood Type: O+ Rubella Status: Immune Varicella Immunity: Immune Abnormal Lab Findings: Abnormal Labs 02/07/24 02/07/24 16:45 18:15 WBC 13.50 H MPV 11.3 H Ur Leukocyte Esterase Trace H Additional Findings Results: Vaginal pathogen screen results pending Risk Assessment Risk for Shoulder Dystocia Historical/Initial OB: NEGATIVE FOR: Pelvic Abnormality, Pre- BMI>30, Previous Shoulder Dystocia or Previous Macrosomia Increased Risk?: No Risk for Pre-Eclampsia Daily Dose ASA Indicated: No Date Initiated/Initials: not indicated, jk Yes, if one or more: NEGATIVE FOR: Hx Pre-E/Gest HTN, Chronic HTN, Multiple Gestation, Pre-gestational DM, Renal Disease, Systemic Lupus or APA Syndrome Yes, if 2 or more: NEGATIVE FOR: Nulliparity, Age>= 35 yrs, >10yr btwn pregnancies, BMI>30, ethinicty, Mother/Sister w/ Pre-E or Previous IUGR Risk for Post- Hemorrhage Initial: NEGATIVE FOR: Multiple Gestation, Previous PPH, Known Clotting Deficiency, Grand Multiparity or Anticoagulation At Risk?: No Risks Reviewed Risks Reviewed Upon Admission: Yes
[2024-02-07] MEDS: NIFEdipine 10 MG CAP 20 MG PO (19:52)
--- NOTE | 2024-02-07 20:22 | W.PM.DS.N ---
Date of service: 02/07/24 Time of Service: 20:22 DS: Diagnosis Discharge Diagnosis (1) contractions: Status: Acute (2) labor in second trimester: Status: Acute (3) History of delivery, currently : Status: Acute Discharge Plan Disposition Specific Acute Inpt Facility: [facility] Condition: Fair Condition: Fair Discharge Details Reason For Visit: IUP at 29w5d EGA, contractions Attending Provider: Hanh Loving Primary Care Provider: Lennie Dave [facility] Course Hospital Course: Pt presented for a scheduled visit this afternoon. She reported painful uterine contractions beginning earlier today accompanied by nausea, vomiting and acid reflux. No vaginal bleeding, no loss of amniotic fluid. Exam in [facility] office: 1.5/80%/ . On arrival for observation of Center IV LR bolus was administered along with 4mg Ondansetron. Pt was able to tolerate regular diet. She reported less awareness of contractions but repeat SVE: /-1. Vertex. [facility] was contacted and pt was transfered to [facility] via ambulance. Nifedipine 20mg PO administered at 1945. Magnesium Sulfate bolus was interrupted and discontinued. GBS RV Cx was obtained at time of previous [facility] transfer and was negative. Home Meds and New Rx's Prescriptions: No Action esomeprazole magnesium [Nexium] 40 mg capsule,delayed release(DR/EC) 40 mg PO DAILY Qty: 60 1RF albuterol sulfate [Ventolin HFA] 90 mcg/actuation HFA aerosol inhaler 2 puff inhalation Q4H PRN (Reason: shortness of breath or wheezing) Qty: 8.5 4RF vit,[id number] 29-1 mg tablet 1 tab PO DAILY Qty: 90 4RF metronidazole 500 mg tablet 500 mg PO BID fluconazole 150 mg tablet 150 mg PO ONCE Qty: 2 0RF Rx Instructions: Take after completion of antibiotics. Repeat in 72hrs if still symptoms nicotine 7 mg/24 hr patch 24 hour 1 patch transdermal Q24H Qty: 7 4RF Discharge Instructions Activity:: Activity as Tolerated Activity:: Activity as Tolerated Equipment/Supplies:: IV fluid Diet:: As Tolerated Discharge Orders Discharge Orders: Discharge Order (Routine); Ordered 02/07/24 Ordered By: Hanh Loving Discharge Data Discharge Physician: Hanh O'Behzad DS: Summary Time Spent with Patient providing and/or coordinating discharge services: Greater than 30 minutes Specific discharge activities: Coordinating care Status at Discharge Functional status at discharge: bed bound Overall status at discharge: patient is not back to baseline Mental Status: mental status grossly normal Speech and Movement: speech and movement normal Mood: congruent mood Affect: normal affect Quality:SDOH Health Related Social Needs: No Data to Display Exam Const General: no acute distress Nutritional Appearance: well nourished Orientation: alert, awake and oriented x3 Neck Neck: normal visual inspection Resp Effort & Inspection: normal respiratory effort Auscultation: clear to auscultation bilaterally Cardio Rate: regular rate Rhythm: regular rhythm GI Inspection: normal to inspection Palpation: no hepatosplenomegaly General: other External Female Exam: normal external appearance Manual OB Exam: dilated 3, effaced 75% (90%) and station -1 Amniotic Fluid: no fluid Skin General skin exam: no rashes or lesions noted Extrem General: normal to inspection and no pedal edema Psych Appearance: disheveled Mental Status: mental status grossly normal Speech and Movement: speech and movement normal Mood: congruent mood Affect: normal affect Attitude: cooperative Thought Process: normal Thought Content: normal Insight: insight good Judgment: judgment good DS: Data Vitals/I&O Vitals and I&O: Vital Signs Temperature 97.9 F 02/07/24 18:58 Temperature 97.7 F 02/07/24 17:08 Temperature Source Oral 02/07/24 18:58 Pulse 84 02/07/24 19:45 Pulse 71 02/07/24 17:08 Pulse Rhythm Regular 02/07/24 17:21 Respiratory Rate 14 02/07/24 18:58 Blood Pressure 119/69 02/07/24 19:45 Blood Pressure 107/59 02/07/24 17:08 Blood Pressure Mean 82 02/07/24 18:58 Pulse Oximetry 96 02/07/24 18:58 Oxygen Delivery Method Room Air 02/07/24 17:21 Oxygen Flow Rate 0 02/07/24 17:21 Pain Level 7 02/07/24 17:21 Intake & Output 02/06/24 02/07/24 02/07/24 23:59 11:59 23:59 Intake Total 500 / 500 Balance 500 / 500 Weight 164 lb Intake: IV 500 / 500 Other: Urine Color Light Ailyn Data Completed and Pending Pending studies at discharge: Vaginal pathogen screen Labs on day of discharge: Labs from last 24 hours 02/07/24 02/07/24 18:15 16:45 WBC 13.50 H RBC 4.09 Hgb 12.6 Hct 37.2 MCV 91 MCH 30.8 MCHC 33.9 RDW 12.4 Plt Count 223 MPV 11.3 H Urine Color Yellow Urine Clarity Clear Urine pH 7.5 Ur Specific Curtis 1.015 Urine Protein Negative Urine Ketones Negative Urine Blood Negative Urine Nitrite Negative Urine Bilirubin Negative Urine Urobilinogen 0.2 Ur Leukocyte Esterase Trace H Urine RBC Negative Urine WBC 0-2 Ur Epithelial Cells Few Urine Crystals Negative Urine Bacteria Negative Urine Mucus Negative Ur Culture Indicated? No Urine Glucose Negative ABO/Rh O Positive Antibody Screen NEGATIVE PFSH All Active Problems (Updated 02/07/24 @ 19:59 by Hanh Loving MD) contractions (Acute) labor in second trimester (Acute) History of delivery, currently (Acute) Low back pain (Acute) Economic stress (Acute) Abdominal pain (Acute) Anti-TPO antibodies present (Acute) Depression (Chronic) ADHD, predominantly hyperactive type (Acute) Dx since childhood, no meds since age 12 Exercise-induced asthma (Acute) Anxiety (Chronic) Marijuana use (Acute) Smoker (Acute) (Acute) Migraine (Chronic) Medical History (Updated 02/07/24 @ 19:59 by Hanh Loving MD) Elevated TSH Hypothyroidism Elevated TSH w/nml T4 Family history of alpha 1 antitrypsin deficiency Pt's mother and sister Family history of hemochromatosis Father of baby's family High risk HPV infection Vaginal Pap smear with LGSIL Lactose intolerance Chronic GERD Obesity BMI 29 at beginning pf Surgical History No significant past surgical history Family History Self Asthma Depression No meds ever Mother Alpha 1-antitrypsin PiMS phenotype Sister Alpha 1-antitrypsin PiMS phenotype Paternal Grandfather Diabetes Social History Smoking/Tobacco Use Status: Current every day Tobacco Type: cigarettes Smoking packs per day: 0.5 Smoking cigarettes per day: 10.0 Tobacco: How many years used: 6 Quit status: considering quitting Counseling given: provider counseling (offerred wellbutrin for mood and smoking cessation and Debra would like to try it. ) Smoking risk assessment performed?: Yes Alcohol Intake: current Alcohol Intake frequency: holidays/special occasions only Drug use: Daily Substance use type: marijuana Housing: house Do you feel safe at home: Yes Do you feel safe in your relationship?: Yes History History 2 Para 1 Hx # Term Pregnancies 0 Multiple births 0 Hx # Pregnancies 1 Ectopic pregnancies 0 AB induced 0 Hx Number of Living Children 1 AB spontaneous 0 Past Pregnancies Del. Date GA/Weeks # Preg Succ Route Wgt Sex Labor Lgth Anesthesia Location Prov Complic 07/23/22 31 No Yes vaginal 4 lb 0.9 oz Female 7hrs 19min DARRYL Anders Delivery Date: 07/23/22 Last Updated by: AVILA Pastor Time Spent with Patient Time Spent with Patient: 45-69 minutes Time was spent: preparing to see the patient(eg.review tests), obtaining and/or reviewing separately otained hiistory, ordering medications,tests, procedures, referring, communicating with other health wound care center consultant, counseling the patient and care coordination
== END 2024-02-07 20:45 | disposition other institution (70) ==
LOC: BCD 15:45 → OBS 15:59
PROVIDERS: PCP Nurse Practitioner Family; Visit Provider Obstetrics & Gynecology Gynecology
DX: O60.03 Preterm labor without delivery, third trimester; O09.893 Supervision of other high risk pregnancies, third trimester; Z3A.29 29 weeks gestation of pregnancy
CPT/HCPCS: 85027; 86850; 86900; 86901; 81003; 81015; G0378; J2405; J3475; J3490

== ENCOUNTER 2024-02-07 15:49 | Outpatient (REF) | payer MEDICAID, SELFPAY | END 2024-02-07 15:50 | disposition home or self-care (01) | LOC: LBN 15:49 | PROVIDERS: PCP Nurse Practitioner Family; Visit Provider Obstetrics & Gynecology | DX: N94.9 Unspecified condition associated with female genital organs and menstrual cycle (principal) | CPT/HCPCS: 87480; 87510; 87660 ==

== ENCOUNTER 2024-02-10 01:17 | Inpatient (IN) | payer MEDICAID, SELFPAY ==
[2024-02-10 01:14] VITALS: BP 125/74; PULSE 116; RESP 19; TEMP 36.8; O2SAT 97
--- NOTE | 2024-02-10 01:57 | HPE_ITS ---
Date of service: 02/10/24 Time of Service: 01:57 Assessment and Plan Assessment and plan (1) contractions: Status: Acute Assessment and plan: During the first few hours she was observed she reported that her contractions were not as strong. On the monitor she would have several barely noticeable ctxs every 3min but then space out for a while. She is feeling ctx even less often. She had a small trickle of fluid once when she coughed but nitrazine was negative. FHT remains Cat 1. [facility] was contacted but since her ctx seemed to be less frequent at that time the decision was made to not transfer her again at this point. They are happy to accept her in transport if things change. She will continue to be monitored here at [facility] for the next few hours. OB-HPI Labor/Delivery History of Present Illness Reason for Visit: labor Chief Complaint: Uterine Contractions. DONALDO Calculator Estimated Delivery Date Method Current WG Current Estimate 04/19/24 Ultrasound #1 30w 1d Comments: Pt says she woke up suddenly around midnight with sharp pelvic pain and pressure. She did get up and urinate but says her bladder wasn't that full. After that she had continued pelvic pressure as though he's trying to get out and lower contractions. She denies bleeding or loss of fluid or unusual discharge. She was just transported to [facility] 2 days ago for labor. She was 3cm dilated and discharged home per her request since her ctxs had resolved. She has an 18mo daughter who she struggles to get childcare for. She denies any ctxs during the day yesterday. She does report having a cough and a sore throat and says her brother has pneumonia and she is worried she got it from him. History of Present Expected Delivery Route/Plan BRIAN Moya MD (hx PTD) BB Specific Issues/Plan 1. History of PTD 31 weeks (jul 2022): ROM and delivery shortly after arrival on L&D -01/20/24. [facility] [place] for PTL. Rx Betamethasone, MgSO4, Nifedipine and discharged with no cervical change @ 2.5cm -Pt also treated for BV, yeast and a UTI. -Cx: on 01/25/24. 2. Vaginal pathogen bhavesh & BV+, treated 11/06/23. Tx'd again 01/22/24 3. Fam history of Hemochromatosis, PTD 4. Anxiety/depression: [facility] 10/31/23 cancelled. 12/18/23. No psych intake yet. Referred to see Malinda Siegel again - appt 01/30. 5. Tobacco use: would like to quit but doesn't feel like she can stop cold turkey. - Started patch 01/25/24 - Also using MJ once/twice daily for back pain and anxiety. Pap UTD, GC/CT are neg cfDNA=low risk male, CF previously negative, declines SMA and AFP PFSH All Active Problems (Updated 02/08/24 @ 00:09 by ROBERTO AVILA) contractions (Acute) labor in second trimester (Acute) History of delivery, currently (Acute) Low back pain (Acute) Economic stress (Acute) Abdominal pain (Acute) Anti-TPO antibodies present (Acute) ADHD, predominantly hyperactive type (Acute) Dx since childhood, no meds since age 12 Exercise-induced asthma (Acute) Anxiety (Chronic) Marijuana use (Acute) Smoker (Acute) (Acute) Depression (Chronic) Migraine (Chronic) Medical History (Updated 02/08/24 @ 00:09 by ROBERTO AVILA) Elevated TSH Hypothyroidism Elevated TSH w/nml T4 Family history of alpha 1 antitrypsin deficiency Pt's mother and sister Family history of hemochromatosis Father of baby's family High risk HPV infection Vaginal Pap smear with LGSIL Lactose intolerance Chronic GERD Obesity BMI 29 at beginning pf Surgical History No significant past surgical history Family History Self Asthma Depression No meds ever Mother Alpha 1-antitrypsin PiMS phenotype Sister Alpha 1-antitrypsin PiMS phenotype Paternal Grandfather Diabetes Social History Smoking/Tobacco Use Status: Current every day Tobacco Type: cigarettes Smoking packs per day: 0.5 Smoking cigarettes per day: 10.0 Tobacco: How many years used: 6 Quit status: considering quitting Counseling given: provider counseling (offerred wellbutrin for mood and smoking cessation and Debra would like to try it. ) Smoking risk assessment performed?: Yes Alcohol Intake: current Alcohol Intake frequency: holidays/special occasions only Drug use: Daily Substance use type: marijuana Housing: house Do you feel safe at home: Yes Do you feel safe in your relationship?: Yes History History 2 Para 1 Hx # Term Pregnancies 0 Multiple births 0 Hx # Pregnancies 1 Ectopic pregnancies 0 AB induced 0 Hx Number of Living Children 1 AB spontaneous 0 Past Pregnancies Del. Date GA/Weeks # Preg Succ Route Wgt Sex Labor Lgth Anesth esia Location Prov Complic 07/23/22 31 No Yes vaginal 4 lb 0.9 oz Female 7hrs 19min DARRYL Anders Delivery Date: 07/23/22 Last Updated by: AVILA Pastor Allergies and Home Medications Allergies Allergy/AdvReac Type Severity Reaction Status Date / Time No Known Allergies Allergy Verified 02/07/24 14:58 Home Medications ?Medication ?Instructions ?Recorded ?Confirmed ?Type albuterol sulfate 90 mcg/actuation 2 puff inhalation Q4H PRN 08/21/23 02/10/24 Rx aerosol inhaler (Ventolin HFA) shortness of breath or wheezing #8.5 grams vits,calcium no.78-iron 1 tab PO DAILY #90 tabs 08/21/23 02/10/24 Rx fumarate-folic acid 29 mg-1 mg tablet esomeprazole magnesium 40 mg 40 mg PO DAILY #60 caps 12/18/23 02/10/24 Rx capsule,delayed release (Nexium) nicotine 7 mg/24 hr daily 1 patch transdermal Q24H #7 ea 01/25/24 02/10/24 Rx transdermal patch Exam Physical Exam Vital signs: Temp Pulse Resp BP Pulse Ox 98.3 F 116 H 19 125/74 97 02/10/24 01:14 02/10/24 01:14 02/10/24 01:14 02/10/24 01:14 02/10/24 01:14 Vital Signs Reviewed: Yes Detailed Labor and Delivery Exam Dilation: 3 Effacement (%): 80 Alcantara Score: Cervical Points Exam 0 1 2 3 Dilation Closed 1-2cm 3-4 cm 5-6cm Effacement 0-30% 40-50% 60-70% 80% Consistency Firm Medium Soft Station -3 -2 -1,0 +1,+2 Position Posterior Mid Anterior Amniotic Membrane Status: Intact Contraction Frequency(min): q3min Fetus A Heart Rate Baseline: 140 Monitor Accelerations: 15 X 15 Monitor Decelerations: None Variability: Moderate (6-25 BPM) Presentation: Vertex Categories: Category I HEENT Exam HEENT Exam: Normal Results Results Group Beta Strep: Negative Blood Type: O+ Rubella Status: Immune Varicella Immunity: Immune Risk Assessment Risk for Shoulder Dystocia Historical/Initial OB: NEGATIVE FOR: Pelvic Abnormality, Pre- BMI>30, Previous Shoulder Dystocia or Previous Macrosomia Risk for Pre-Eclampsia Date Initiated/Initials: not indicated, jk Yes, if one or more: NEGATIVE FOR: Hx Pre-E/Gest HTN, Chronic HTN, Multiple Gestation, Pre-gestational DM, Renal Disease, Systemic Lupus or APA Syndrome Yes, if 2 or more: NEGATIVE FOR: Nulliparity, Age>= 35 yrs, >10yr btwn pre gnancies, BMI>30, ethinicty, Mother/Sister w/ Pre-E or Previous IUGR Risk for Post- Hemorrhage Initial: NEGATIVE FOR: Multiple Gestation, Previous PPH, Known Clotting Deficiency, Grand Multiparity or Anticoagulation Risks Reviewed Risks Reviewed Upon Admission: Yes
[2024-02-10 03:18] VITALS: BP 119/59; PULSE 81; RESP 18; TEMP 36.4; O2SAT 97
[2024-02-10 03:25] LABS: COVID-19 PCR Negative (Negative); Influenza A PCR Negative (Negative); Influenza B PCR Negative (Negative); RSV PCR Negative (Negative)
[2024-02-10 03:50] LABS: Source Nasopharynx
[2024-02-10] MEDS: Lactated Ringers 500 ML 999 ML IV (04:19)
--- NOTE | 2024-02-10 04:44 | W.PM.PROGNOT ---
Date of Service Date of service: 02/10/24 Time of Service: 04:44 Objective Last Vital Signs Temp 97.5 F L 02/10/24 03:18 Pulse 81 02/10/24 03:18 Resp 18 02/10/24 03:18 BP 119/59 L 02/10/24 03:18 Pulse Ox 97 02/10/24 03:18 Laboratory Results - last 24 hr 02/10/24 02:30 COVID-19 Source Nasopharynx SARS-CoV-2 (PCR) Negative Influenza Type A (PCR) Negative Influenza Type B (PCR) Negative RSV (PCR) Negative
[2024-02-10] MEDS: NIFEdipine 10 MG CAP 20 MG PO (04:54)
--- NOTE | 2024-02-10 04:54 | W.PM.OBNL1 ---
Date of service: 02/10/24 Time of Service: 04:54 Pelvic Exam Dilation: 3 Effacement (%): 80 station: -1 Fetus A Heart Rate Baseline: 135 Presentation: Vertex Variability: Moderate (6-25 BPM) Categories: Category I Accelerations: 15 X 15 Decelerations: None Assessment and Plan Assessment and plan (1) labor in second trimester: Status: Acute Assessment and plan: Due to increasing contractions [facility] was called again and the decision was made to transport the patient. Dr. Payne accepted her in transport. She will get Nifedipine 20mg PO for tocolysis. Transportation is being arranged. She declined being rechecked just prior to transport because her contractions had spaced out some after nifedipine. Qualifiers: labor delivery status: without delivery Qualified Code(s): O60.02 - labor without delivery, second trimester Objective Temp Pulse Resp BP Pulse Ox 97.5 F L 81 18 119/59 L 97 02/10/24 03:18 02/10/24 03:18 02/10/24 03:18 02/10/24 03:18 02/10/24 03:18 Laboratory Results COVID-19 Source Nasopharynx 02/10/24 02:30 SARS-CoV-2 (PCR) Negative (Negative) 02/10/24 02:30 Influenza Type A (PCR) Negative (Negative) 02/10/24 02:30 Influenza Type B (PCR) Negative (Negative) 02/10/24 02:30 RSV (PCR) Negative (Negative) 02/10/24 02:30 Vital Signs Reviewed: Yes Subjective Interval history since last seen: Over the past hour her contractions have increased in intensity and regularity.
[2024-02-10] MEDS: Acetaminophen 325 MG TAB 650 MG PO (05:40)
== END 2024-02-10 06:00 | disposition short-term general hospital (02) | DRG 832 ==
LOC: OBS 02-12 08:17
PROVIDERS: Admitting Provider Obstetrics & Gynecology; PCP Nurse Practitioner Family; Visit Provider Obstetrics & Gynecology
DX: O60.03 Preterm labor without delivery, third trimester (principal); O99.323 Drug use complicating pregnancy, third trimester; Z3A.30 30 weeks gestation of pregnancy; O99.333 Smoking (tobacco) complicating pregnancy, third trimester; F17.210 Nicotine dependence, cigarettes, uncomplicated; O99.343 Other mental disorders complicating pregnancy, third trimester; F41.8 Other specified anxiety disorders; O99.513 Diseases of the respiratory system complicating pregnancy, third trimester; O99.353 Diseases of the nervous system complicating pregnancy, third trimester; F12.90 Cannabis use, unspecified, uncomplicated; O09.73 Supervision of high risk pregnancy due to social problems, third trimester; F90.9 Attention-deficit hyperactivity disorder, unspecified type; J45.990 Exercise induced bronchospasm; G43.909 Migraine, unspecified, not intractable, without status migrainosus; M54.50 Low back pain, unspecified; O26.893 Other specified pregnancy related conditions, third trimester
CPT/HCPCS: 87637; G0378

== ENCOUNTER 2024-02-29 14:06 | Outpatient (REF) | payer MEDICAID, SELFPAY ==
[2024-02-29 14:45] LABS: *AMPHETAMINES SCREEN URINE Negative (Negative); *BARBITURATES SCREEN URINE Negative (Negative); *BENZODIAZEPINES SCREEN URINE Negative (Negative); Cannabinoids THC Positive (Negative); Cocaine Screen,Urine Negative (Negative); METHADONE URINE SCREEN Negative (Negative); OPIATES URINE SCREEN Negative (Negative); Tricyclic Antidepressants Negative (Negative)
[2024-03-04 09:57] LABS: Fentanyl Scr w/Rfx Confirm Positive ng/mL (<1)
[2024-03-05 11:54] LABS: Fentanyl Confirmation Negative ng/mL (<2); Norfentanyl Confirmation Negative ng/mL (<10)
[2024-03-07 09:04] LABS: Buprenorphine Negative ng/mL (Cutoff: 5.0); Norbuprenorphine Negative ng/mL (Cutoff: 2.5)
== END 2024-02-29 14:07 | disposition home or self-care (01) ==
LOC: LBN 14:06
PROVIDERS: PCP Nurse Practitioner Family; Visit Provider Obstetrics & Gynecology
DX: Z34.93 Encounter for supervision of normal pregnancy, unspecified, third trimester (principal)
CPT/HCPCS: 80307; 80348; 80354

== ENCOUNTER 2024-03-02 11:37 | Inpatient (IN) | payer MEDICAID, SELFPAY ==
[2024-03-02] VITALS (274 sets, daily range): BP systolic 95–140; BP diastolic 51–87; PULSE 68–136; RESP 16–18; TEMP 36.4–37; O2SAT 81–100
[2024-03-02 11:13] LABS: ROM Plus Positive
--- NOTE | 2024-03-02 11:40 | HPE_ITS ---
Date of service: 03/02/24 Time of Service: 11:40 Assessment and Plan Assessment and plan (1) : Status: Acute (2) History of delivery, currently : Status: Acute (3) Prolonged rupture of membranes: Status: Acute Assessment and plan: Patient is a 2 para 1 at 33 and 1 sevenths weeks. She has had labor throughout her this and had spontaneous rupture of membranes perhaps within the last 24 hours. She is unknown known timing. For this reason she will receive penicillin for group B strep prophylaxis despite a negative culture 6 weeks ago. She is in active labor. Director [employer] is notified. I would anticipate vaginal . All questions answered. Risks are reviewed. OB-HPI Labor/Delivery History of Present Illness Reason for Visit: SROM Chief Complaint: Uterine Contractions; Suspected Rupture of Membranes , Associated Signs and Symptoms of Suspected ROM: Gush of fluid ; Maternal Discomfort , Associated Signs and Symptoms of Maternal Discomfort: Painful contractions. DONALDO Calculator Estimated Delivery Date Method Current WG Current Estimate 04/19/24 Ultrasound #1 33w 1d Comments: Patient phoned late this morning with the possibility of leaking fluid. She is unsure as to when she started leaking fluid and it could have been as long as the last 24 hours. Baby's been moving and active. She did have increasing uterine contractions just prior to her arrival on the center. As of note, during her , she has been transferred to [facility] on 3 separate occas ions for labor. She has received steroid courses in the past. At this point, she is in active labor with spontaneous rupture of membranes and ROM plus positive. Director [employer] notified. Group B strep culture previously was greater than 5 weeks ago and a repeat group B strep culture was performed. She will be prophylaxed if possible prior to delivery. From a social standpoint, she does smoke tobacco and marijuana. She denies any illicit drug use. Anticipation for a vaginal . History of Present Expected Delivery Route/Plan BRIAN - (hx PTD) BB Specific Issues/Plan 1. History of PTD 31 weeks (jul 2022): ROM and delivery shortly after arrival on L&D -01/20/24. [facility] x24hrs for PTL. Rx Betamethasone, MgSO4, Nifedipine and discharged with no cervical change @ 2.5cm -Pt also treated for BV, yeast and a UTI. -Cx: on 01/25/24. 2. Vaginal pathogen bhavesh & BV+, treated 11/06/23. Tx'd again 01/22/24 3. Fam history of Hemochromatosis, PTD 4. Anxiety/depression: [facility] 10/31/23 cancelled. 12/18/23. No psych intake yet. Referred to see Malinda Siegel again - appt 01/30. 5. Tobacco use: would like to quit but doesn't feel like she can stop cold turkey. - Started patch 01/25/24 - Also using MJ once/twice daily for back pain and anxiety. Pap UTD, GC/CT are neg cfDNA=low risk male, CF previously negative, declines SMA and AFP Narrative: Chart reviewed Review of Systems All systems reviewed & are unremarkable except as noted in HPI and below Constitutional Constitutional: Reports as per HPI and Reports system reviewed and no additional complaints, except as documented ENT Ears, Nose, Mouth, and Throat: Reports system reviewed and no additional comp laints, except as documented Cardiovascular Cardiovascular: Reports system reviewed and no additional complaints, except as documented Respiratory Respiratory: Reports system reviewed and no additional complaints, except as documented, Denies chest congestion and Denies cough Gastrointestinal Gastrointestinal: Reports as per HPI and Reports system reviewed and no additional complaints, except as documented Genitourinary Genitourinary: Reports as per HPI Psychiatric Psychiatric: Reports system reviewed and no additional complaints, except as documented PFSH All Active Problems (Updated 03/02/24 @ 11:46 by Rossy Hawkins DO) Prolonged rupture of membranes (Acute) contractions (Acute) labor in second trimester (Acute) History of delivery, currently (Acute) Low back pain (Acute) Economic stress (Acute) Abdominal pain (Acute) Anti-TPO antibodies present (Acute) Depression (Chronic) ADHD, predominantly hyperactive type (Acute) Dx since childhood, no meds since age 12 Exercise-induced asthma (Acute) Anxiety (Chronic) Marijuana use (Acute) Smoker (Acute) (Acute) Migraine (Chronic) Medical History (Updated 03/02/24 @ 11:46 by Rossy Hawkins DO) Elevated TSH Hypothyroidism Elevated TSH w/nml T4 Family history of alpha 1 antitrypsin deficiency Pt's mother and sister Family history of hemochromatosis Father of baby's family High risk HPV infection Vaginal Pap smear with LGSIL Lactose intolerance Chronic GERD Obesity BMI 29 at beginning pf Surgical History No significant past surgical history Family History Self Asthma Depression No meds ever Mother Alpha 1-antitrypsin PiMS phenotype Sister Alpha 1-antitrypsin PiMS phenotype Paternal Grandfather Diabetes Social History Smoking/Tobacco Use Status: Current every day Tobacco Type: cigarettes Smoking packs per day: 0.5 Smoking cigarettes per day: 10.0 Tobacco: How many years used: 6 Quit status: considering quitting Counseling given: provider counseling (offerred wellbutrin for mood and smoking cessation and Debra would like to try it. ) Smoking risk assessment performed?: Yes Alcohol Intake: current Alcohol Intake frequency: holidays/special occasions only Drug use: Daily Substance use type: marijuana Housing: house Do you feel safe at home: Yes Do you feel safe in your relationship?: Yes History History 2 Para 1 Hx # Term Pregnancies 0 Multiple births 0 Hx # Pregnancies 1 Ectopic pregnancies 0 AB induced 0 Hx Number of Living Children 1 AB spontaneous 0 Past Pregnancies Del. Date GA/Weeks # Preg Succ Route Wgt Sex Labor Lgth Anesth esia Location [facility] 07/23/22 31 No Yes vaginal 4 lb 0.9 oz Female 7hrs 19min DARRYL Anders Delivery Date: 07/23/22 Last Updated by: AVILA Pastor Allergies and Home Medications Allergies Allergy/AdvReac Type Severity Reaction Status Date / Time No Known Allergies Allergy Verified 02/29/24 13:54 Home Medications ?Medication ?Instructions ?Recorded ?Confirmed ?Type albuterol sulfate 90 mcg/actuation 2 puff inhalation Q4H PRN 08/21/23 02/29/24 Rx aerosol inhaler (Ventolin HFA) shortness of breath or wheezing #8.5 grams vits,calcium no.78-iron 1 tab PO DAILY #90 tabs 08/21/23 02/29/24 Rx fumarate-folic acid 29 mg-1 mg tablet nicotine 7 mg/24 hr daily 1 patch transdermal Q24H #7 ea 01/25/24 02/29/24 Rx transdermal patch esomeprazole magnesium 40 mg 40 mg PO DAILY #60 caps 02/29/24 02/29/24 Rx capsule,delayed release (Nexium) ondansetron 4 mg disintegrating 4 mg PO Q6H PRN nausea and 02/29/24 02/29/24 Rx tablet vomiting #60 tabs Exam Physical Exam Vital signs: Temp Pulse Resp BP 97.9 F 72 18 109/68 03/02/24 11:07 03/02/24 11:07 03/02/24 11:07 03/02/24 11:07 Vital Signs Reviewed: Yes Constitutional Constitutional: mild distress (Due to contractions) Detailed Labor and Delivery Exam Dilation: 4 Effacement (%): 100 station: 0 Position: BARBARA Cervix position: anterior Consistency: soft Khan Score: Cervical Points Exam 0 1 2 3 Dilation Closed 1-2cm 3-4 cm 5-6cm Effacement 0-30% 40-50% 60-70% 80% Consistency Firm Medium Soft Station -3 -2 -1,0 +1,+2 Position Posterior Mid Anterior KHAN Score(Cervical Ripeness Score): 11 Amniotic Membrane Status: Ruptured Rupture Method: Spontaneous ROM Plus: Positive Fetus A Heart Rate Baseline: 130 Monitor Accelerations: Present Monitor Decelerations: None Variability: Moderate (6-25 BPM) Presentation: Cephalic Categories: Category I Ultrasound OB Ultrasound for TERRI. Indication: Painful Total TERRI: 7 Exam complete and Ultrasound for presentation. Indication: Gush of fluid Presentation: Cephalic. Exam complete. Risk Assessment Risk for Shoulder Dystocia Historical/Initial OB: NEGATIVE FOR: Pelvic Abnormality, Pre- BMI>30, Previous Shoulder Dystocia or Previous Macrosomia Risk for Pre-Eclampsia Date Initiated/Initials: not indicated, jk Yes, if one or more: NEGATIVE FOR: Hx Pre-E/Gest HTN, Chronic HTN, Multiple Gestation, Pre-gestational DM, Renal Disease, Systemic Lupus or APA Syndrome Yes, if 2 or more: NEGATIVE FOR: Nulliparity, Age>= 35 yrs, >10yr btwn pregnancies, BMI>30, ethinicty, Mother/Sister w/ Pre-E or Previous IUGR Risk for Post- Hemorrhage Initial: NEGATIVE FOR: Multiple Gestation, Previous PPH, Known Clotting Deficiency, Grand Multiparity or Anticoagulation Risks Reviewed Risks Reviewed Upon Admission: Yes
--- NOTE | 2024-03-02 11:54 | W.PM.OBNL1 ---
Date of service: 03/02/24 Time of Service: 11:55 Pelvic Exam Dilation: 5 Effacement (%): 100 Contractions Contraction Frequency(min): 3 Fetus A Monitor: External (US) Heart Rate Baseline: 140 Variability: Moderate (6-25 BPM) Assessment and Plan Assessment and plan (1) labor in third trimester: Status: Acute Assessment and plan: labor with spontaneous rupture membranes for undetermined time period. Penicillin for group B strep prophylaxis. Nursery Hand aware. Anticipate vaginal . Analgesia offered and declined. Objective Temp Pulse Resp BP 97.9 F 72 18 109/68 03/02/24 11:07 03/02/24 11:07 03/02/24 11:07 03/02/24 11:07 Laboratory Results Membranes Rupture Positive 03/02/24 10:30 Subjective Interval history since last seen: Increasing discomfort with contractions. Repeat cervical exam with no significant change. Patient now in a birthing room. IV is being established. Will have penicillin for group B strep essentially unknown with last culture greater than 6 weeks
[2024-03-02] MEDS: Penicillin G POT. 5,000,000 UNITS in Normal Saline 100 ML 200 UNITS IVPB (12:26)
[2024-03-02 12:30] LABS: HCT 34.6 % (36.0-46.0); HGB 11.6 g/dL (11.2-15.7); MCH 30.4 pg (27.0-33.0); MCHC 33.5 % (32.0-36.0); MCV 91 fL (80-95); MPV 11.5 fL (8.0-11.0); Platelet Count 197 10^3/uL (130-400); RBC 3.81 10^6/uL (3.93-5.22); RDW 12.8 % (11.7-14.6); RDW-SD 42.2 fL; WBC 14.94 10^3/uL (4.4-10.8)
--- NOTE | 2024-03-02 14:58 | W.PM.OBNL1 ---
Date of service: 03/02/24 Time of Service: 14:58 Informed Consent Informed Consent: Augmentation of Labor and Regional Anesthesia Pelvic Exam Dilation: 5 Effacement (%): 90 station: 0 Contractions Contraction Frequency(min): 3 Contraction Duration(sec): 60 Fetus A Heart Rate Baseline: 130 Assessment and Plan Assessment and plan (1) labor in third trimester: Status: Acute Assessment and plan: Prolonged rupture of membranes. Group B strep unknown. Cultures pending. Penicillin for group B strep prophylaxis x 2. Will begin augmentation of labor with oxytocin. Risks benefits and alternatives discussed. Patient also consented for epidural for analgesia. All questions answered (2) Prolonged rupture of membranes: Status: Acute Objective Abnormal lab results 03/02/24 Range/Units 12:16 WBC 14.94 H (4.4-10.8) 10^3/uL RBC 3.81 L (3.93-5.22) 10^6/uL Hct 34.6 L (36.0-46.0) % MPV 11.5 H (8.0-11.0) fL Temp Pulse Resp BP Pulse Ox 97.9 F 87 18 116/64 100 03/02/24 11:07 03/02/24 14:55 03/02/24 11:07 03/02/24 13:10 03/02/24 14:53 Laboratory Results WBC 14.94 10^3/uL (4.4-10.8) H 03/02/24 12:16 RBC 3.81 10^6/uL (3.93-5.22) L 03/02/24 12:16 Hgb 11.6 g/dL (11.2-15.7) 03/02/24 12:16 Hct 34.6 % (36.0-46.0) L 03/02/24 12:16 MCV 91 fL (80-95) 03/02/24 12:16 MCH 30.4 pg (27.0-33.0) 03/02/24 12:16 MCHC 33.5 % (32.0-36.0) 03/02/24 12:16 RDW 12.8 % (11.7-14.6) 03/02/24 12:16 Plt Count 197 10^3/uL (130-400) 03/02/24 12:16 MPV 11.5 fL (8.0-11.0) H 03/02/24 12:16 Membranes Rupture Positive 03/02/24 10:30 ABO/Rh O Positive 03/02/24 12:16 Antibody Screen NEGATIVE 03/02/24 12:16 Subjective Interval history since last seen: Increasing pain with contractions. Cannot rest. No cervical change Results Hemoglobin/Hematocrit: Hgb 11.6 g/dL (11.2-15.7) 03/02/24 12:16 Hct 34.6 % (36.0-46.0) L 03/02/24 12:16 Abnormal Lab Findings: Abnormal Labs 03/02/24 12:16 WBC 14.94 H RBC 3.81 L Hct 34.6 L MPV 11.5 H
[2024-03-02] MEDS: Oxytocin/Normal Saline 30 UNIT/500 ML BAG 1 UNITS IV (15:25)
[2024-03-02] MEDS: Penicillin G POT. 3,000,000 UNITS in Normal Saline 50 ML 100 UNITS IVPB ×2 (16:20→21:48)
[2024-03-02] MEDS: FentaNYL/ROPIvacaine 2 mcg/ml and 0.1% 200 ML CADD Cassette EP (16:20)
--- NOTE | 2024-03-02 16:21 | ANES.NEUR_ITS ---
Epidural/Spinal Catheter Date Performed: 03/02/24 Procedure Start: 15:55 Procedure Stop: 16:22 Requesting Provider: Gianfranco Phan Procedure Location: Obstetrics Reason Performed: Labor Epidural Standard Monitors Applied: Blood Pressure, SpO2 and See EMR for corresponding vital signs Patient Position: Sitting Sedation Given (Indicate Dose Given): No Sedation given Patient Mental Status: Awake Sterility: Hand Hygiene, Surgical Cap, Surgical Mask, Sterile Gloves, Sterile Drape/Sheet and Chlorhexidine Procedure Location: L3-L4 Interspace Epidural Needle: Tuohy 18 Gauge Needle Length: 3.5 Inch Needle Approach: Midline Epidural Procedure: Skin Prepped, Sterile Drape Placed, 1% Lidocaine to skin and subcutaneous tissue with 25G needle, Tuohy Needle placed, LORENE to Saline Used, Epidural Catheter Placed, Negative Heme, Negative CSF Flow and Tuohy Needle Removed Catheter Placed?: Catheter Placed Test Dose (Indicate Dose Given): 3ml 1.5% Lidocaine with 1:200K Epinephrine Given and Negative Test Dose Loss of Resistance Depth (cm): 6 Catheter depth at skin (cm): 12 Dressing: [place] Dressing Placed, Mastisol Used and Dressing reinforced with Tape Epidural Provi ronda Bolus (Indicate Dose Given): Total bolus dose given in 3-5 ml divided doses and Total Ropivacaine 0.1% with Fentanyl 2mcg/ml Given from pump. (ml) Dose:: 10ml total Additives (Indicate Dose Given ): None Infusion Medication: Medication Infusion Began Medication Infusion: Ropivacaine 0.1% with Fentanyl 2mcg/ml Maintenance Infusion Rate (ml/hour): 10 PCEA Bolus Dose (ml): 5 Post Procedure Pain score (0-10): 0 Block Level: N/A Paresthesia: None Ultrasound: Not Used Number of Attempts (See previous attempts in note section): 2 Procedure Tolerated: No Complications and Patient tolerated well Procedure Outcome: Successful Procedure Comment:: Initial attempt 1 cm upfrom space with bone contact, adjusted and epidural easily placed. Pt. comfortable after 10 ml from pump and educated on PCEA use. Questions answered. Performed By: Gianfranco Phan
--- NOTE | 2024-03-02 17:02 | W.PM.OBNL1 ---
Date of service: 03/02/24 Time of Service: 17:02 Informed Consent Informed Consent: Augmentation of Labor and Regional Anesthesia Objective Abnormal lab results 03/02/24 Range/Units 12:16 WBC 14.94 H (4.4-10.8) 10^3/uL RBC 3.81 L (3.93-5.22) 10^6/uL Hct 34.6 L (36.0-46.0) % MPV 11.5 H (8.0-11.0) fL Temp Pulse Resp BP Pulse Ox 97.5 F L 83 18 110/57 L 98 03/02/24 13:40 03/02/24 17:00 03/02/24 16:30 03/02/24 16:32 03/02/24 16:58 Laboratory Results WBC 14.94 10^3/uL (4.4-10.8) H 03/02/24 12:16 RBC 3.81 10^6/uL (3.93-5.22) L 03/02/24 12:16 Hgb 11.6 g/dL (11.2-15.7) 03/02/24 12:16 Hct 34.6 % (36.0-46.0) L 03/02/24 12:16 MCV 91 fL (80-95) 03/02/24 12:16 MCH 30.4 pg (27.0-33.0) 03/02/24 12:16 MCHC 33.5 % (32.0-36.0) 03/02/24 12:16 RDW 12.8 % (11.7-14.6) 03/02/24 12:16 Plt Count 197 10^3/uL (130-400) 03/02/24 12:16 MPV 11.5 fL (8.0-11.0) H 03/02/24 12:16 Membranes Rupture Positive 03/02/24 10:30 ABO/Rh O Positive 03/02/24 12:16 Antibody Screen NEGATIVE 03/02/24 12:16 Subjective Interval history since last seen: Patient seen. Resting comfortable with epidural. heart rate tracing 130s moderate variability appropriate accelerations. Continue Pitocin augmentation, anticipate vaginal . Results Hemoglobin/Hematocrit: Hgb 11.6 g/dL (11.2-15.7) 03/02/24 12:16 Hct 34.6 % (36.0-46.0) L 03/02/24 12:16 Abnormal Lab Findings: Abnormal Labs 03/02/24 12:16 WBC 14.94 H RBC 3.81 L Hct 34.6 L MPV 11.5 H
[2024-03-02] MEDS: Ondansetron 4 MG/2 ML VIAL IVP (21:05)
--- NOTE | 2024-03-02 21:19 | W.PM.OBNL1 ---
Date of service: 03/02/24 Time of Service: 21:19 Informed Consent Informed Consent: Augmentation of Labor and Regional Anesthesia Objective Abnormal lab results 03/02/24 Range/Units 12:16 WBC 14.94 H (4.4-10.8) 10^3/uL RBC 3.81 L (3.93-5.22) 10^6/uL Hct 34.6 L (36.0-46.0) % MPV 11.5 H (8.0-11.0) fL Temp Pulse Resp BP Pulse Ox 97.9 F 82 16 110/70 99 03/02/24 18:00 03/02/24 21:18 03/02/24 19:26 03/02/24 21:03 03/02/24 21:18 Laboratory Results WBC 14.94 10^3/uL (4.4-10.8) H 03/02/24 12:16 RBC 3.81 10^6/uL (3.93-5.22) L 03/02/24 12:16 Hgb 11.6 g/dL (11.2-15.7) 03/02/24 12:16 Hct 34.6 % (36.0-46.0) L 03/02/24 12:16 MCV 91 fL (80-95) 03/02/24 12:16 MCH 30.4 pg (27.0-33.0) 03/02/24 12:16 MCHC 33.5 % (32.0-36.0) 03/02/24 12:16 RDW 12.8 % (11.7-14.6) 03/02/24 12:16 Plt Count 197 10^3/uL (130-400) 03/02/24 12:16 MPV 11.5 fL (8.0-11.0) H 03/02/24 12:16 Membranes Rupture Positive 03/02/24 10:30 ABO/Rh O Positive 03/02/24 12:16 Antibody Screen NEGATIVE 03/02/24 12:16 Subjective Interval history since last seen: Patient seen and examined. Desires cervical check. Cervix is 7 cm, 80%, -1 station. Forebag present with contractions and subsequently artificially ruptured. Pitocin is at 9 milliunits. Contractions every 3 minutes. Category 1 heart rate tracing. Anticipate vaginal . Results Hemoglobin/Hematocrit: Hgb 11.6 g/dL (11.2-15.7) 03/02/24 12:16 Hct 34.6 % (36.0-46.0) L 03/02/24 12:16 Abnormal Lab Findings: Abnormal Labs 03/02/24 12:16 WBC 14.94 H RBC 3.81 L Hct 34.6 L MPV 11.5 H
--- NOTE | 2024-03-02 22:38 | PLAC_PTH ---
PATIENT: Debra Draper LOC: OBS U#:[id number] AGE/SX: 23/F ROOM: OBS.301 RE03/02/[address]: Rossy Hawkins DO : 2000 BED: A DIS: 03/03/2024 SPEC #: [id number] RECD: 03/04/24 12:41 STATUS: SOURichard REQ #: [id number] GRADY: 03/02/24 22:[address]: Rossy Hawkins DEPT: Surgical Specimen RECD BY: Josiane Noriega ENTERED: 03/04/24 12:41 SP TYPE: PLAC OTHR DR: Lennie Dave Tissues: 1 - PLACENTA (3RD TRIMESTER) Procedures: GROSS AND MICRO LEVEL 5 SPECIAL STAIN 1 Comments: [id number]
--- NOTE | 2024-03-02 22:52 | OBVDS_ITS ---
Date of service: 03/02/24 Time of Service: 22:52 OB Labor/ Delivery Information Baby A Delivery Delivery Method: Spontaneaous Presentation: Cephalic Cord Description-Baby A: 3 Vessels Amniotic Fluid: Clear Estimated Blood Loss: 100 Delivery Outcome: Liveborn Note: Patient did receive Pitocin augmentation of her labor due to prolonged rupture of membranes of unknown duration. Gradually she progressed to approximately 7 cm. At that point repeat cervical exam was performed and forebag was noted which was ruptured again for spontaneous clear fluid. Shortly thereafter she progressed to the point that she was completely dilated in the vertex occiput anterior position. She had good analgesia with her epidural. With good maternal effort and 3 pushes she delivered the vertex over an intact perineum. There was no evidence of nuchal cord and the shoulders followed with ease. The baby was delivered up to the mother's belly and had spontaneous cry and movement. Three-vessel cord was noted clamped left long and transected. Baby was then handed off to the waiting business support specialist. Cord blood gases and cord blood sample were both obtained. The placenta delivered spontaneously and was found to be intact. Placenta will be sent for pathology. Uterus is firm and 3 cm below the umbilicus with Pitocin for uterine contraction. Straight catheterization was performed for 200 cc of yellow urine. On inspection of the perineum and vagina, there was no evidence of significant disruption. There was a first-degree hemostatic abrasion at the right labia minora apex. No sutures were necessary. Sponge, sharps, and instrument counts were correct x 2. Mom and baby are in stable condition. Pediatrics in attendance for care of this . Qualitative blood loss 100 cc Providers Doctor: Rossy Hawkins [facility] Service Worker: Oswald Leon Nurse: Katherine Calderon Nurse: Shannen Dacosta Labor/Delivery Information Number of Babies in Womb: 1 Steroids Given: None Reason Steroids Not Administered: N/A Group Beta Strep: Done-Result Unknown Antibiotics Administered: Yes Number of Doses of Antibiotics: 3 Rubella Status: Immune Blood Type: O+ Varicella Immunity: Immune Stages of Labor Onset of Labor Date: 03/02/24 Onset of Labor Time: 10:00 Complete Dilatation Date: 03/02/24 Complete Dilatation Time: 22:22 Labor - Stage 1 Duration: 12 hours and 22 minutes ROM Baby A: 03/02/24 ROM Baby A: 21:13 Delivery Date-Baby A: 03/02/24 Delivery Time-Baby A: 22:31 Labor Stage 2 Duration: 9 minutes Placenta Delivery Date-Baby A: 03/02/24 Placenta Delivery Time-Baby A: 22:38 Labor-Stage 3 Duration: 7 minutes Total Length of Labor-Baby A: 12 hours and 31 minutes Placenta Status: Delivered Baby A Gender: Male Gestational Status: (<34 wks) Gestational Age in Weeks/Days: 33 Weeks and 1 Days Length-Baby A: 17 in
[2024-03-03] VITALS (38 sets, daily range): BP systolic 100–114; BP diastolic 54–61; PULSE 69–91; RESP 16; TEMP 37; O2SAT 97–100
[2024-03-03] MEDS: Acetaminophen 325 MG TAB 650 MG PO ×2 (01:55→07:01)
[2024-03-03] MEDS: Ibuprofen 600 MG TAB PO (01:56)
--- NOTE | 2024-03-03 04:23 | OBPPV_ITS ---
Date of service: 03/03/24 Time of Service: 04:23 Assessment and Plan Assessment and plan (1) Normal spontaneous vaginal delivery: Status: Acute Assessment and plan: day #1 status postnormal spontaneous vaginal delivery of a 33-week intrauterine gestation after prolonged, rupture of membranes. Baby transferred to the intensive care unit at [facility]. Mom transferred for ongoing presents with the baby. All questions answered. Subjective Subjective Interval history: Patient doing well . Will discharge her to [facility] for ongoing care and to be present for her baby who will be in the NICU. Overall baby is doing well. transfer is underway Exam Physical Exam Vital signs: Temp Pulse Resp BP Pulse Ox 98.6 F 80 16 107/57 L 98 03/03/24 00:23 03/03/24 02:27 03/03/24 00:23 03/03/24 02:27 03/03/24 02:27 Vital Signs Reviewed: Yes Constitutional Constitutional: no acute distress HEENT Exam HEENT Exam: Normal Neck Exam Neck Exam: Normal Respiratory Exam Respiratory Exam: Normal Cardiovascular Exam Cardiovascular Exam: Normal Abdominal Exam Comments: Soft, nontender Fundal Exam Comment: Uterus firm, below the umbilicus Extremities Exam Extremity Exam: Normal Skin Exam Skin Exam: Normal Neurological Exam Neurological Exam: Normal Psychiatric Exam Psychiatric Exam: Normal Results Hemoglobin/Hematocrit: Hgb 11.6 g/dL (11.2-15.7) 03/02/24 12:16 Hct 34.6 % (36.0-46.0) L 03/02/24 12:16 Abnormal Lab Findings: Abnormal Labs 03/02/24 12:16 WBC 14.94 H RBC 3.81 L Hct 34.6 L MPV 11.5 H
--- NOTE | 2024-03-03 04:31 | DSE_ITS ---
Date of service: 03/03/24 Time of Service: 04:31 DS: Diagnosis Discharge Diagnosis (1) Normal spontaneous vaginal delivery: Status: Acute Asessment and Plan: day #1 status post normal spontaneous vaginal delivery. Mom will be transferred to [facility] for ongoing presents with her baby who will be in the NICU. Doing well. All questions answered. Discharge Plan Disposition Patient Disposition: Transfer-Acute Inpatient Care Specific Acute Inpt Facility: [facility] Condition: Good Discharge Details Reason For Visit: SROM,Labor a@ 33 weeks Admit Date/Time: 03/02/24 11:37 Admit Provider: Rossy Hawkins Attending Provider: Rossy Hawkins Primary Care Provider: Lennie Dave Hospital Course Hospital Course: Patient presented to the hospital at 33 weeks and 1 day with spontaneous rupture of membranes. She was noted to be 4 cm dilated at that point. She had increasing her contractions, however no significant cervical change. [employer] aware of the patient. Unable to transfer due to active labor. Patient did receive Pitocin augmentation of her labor and epidural for pain control. She went on to deliver via normal spontaneous vaginal delivery of viable male infant. Baby was transferred to the intensive care unit for ongoing care. She had a quantitative blood loss of 100 mL. She is in stable condition upon transfer. Home Meds and New Rx's Prescriptions: No Action albuterol sulfate [Ventolin HFA] 90 mcg/actuation HFA aerosol inhaler 2 puff inhalation Q4H PRN (Reason: shortness of breath or wheezing) Qty: 8.5 4RF vit,[id number] 29-1 mg tablet 1 tab PO DAILY Qty: 90 4RF nicotine 7 mg/24 hr patch 24 hour 1 patch transdermal Q24H Qty: 7 4RF esomeprazole magnesium [Nexium] 40 mg capsule,delayed release(DR/EC) 40 mg PO DAILY Qty: 60 1RF ondansetron 4 mg tablet,disintegrating 4 mg PO Q6H PRN (Reason: nausea and vomiting) Qty: 60 1RF Discharge Instructions Activity:: Pelvic rest Equipment/Supplies:: No Equipment Needed Diet:: As Tolerated Discharge Orders Discharge Orders: Discharge Order (Routine); Ordered 03/03/24 Ordered By: Rossy Hawkins OB:DS Summary Summary Vaginal Delivery Method: Spontaneaous Episiotomy Description: None Laceration Description: None Laceration Extension: N/A Contraception Discussed Contraception Discussed: Yes, Bryant Infant Gender-Baby A: Male weight: 4 lb 14.485 oz Status at Discharge Functional status at discharge: independent ambulation Overall status at discharge: patient is progressing back to baseline Mental Status: mental status grossly normal Speech and Movement: speech and movement normal Mood: congruent mood Affect: normal affect Quality:SDOH Health Related Social Needs: No Data to Display Exam Physical Exam Vital signs: Temp Pulse Resp BP Pulse Ox 98.6 F 80 16 107/57 L 98 03/03/24 00:23 03/03/24 02:27 03/03/24 00:23 03/03/24 02:27 03/03/24 02:27 Narrative: See physical exam from progress note dated 03/03/2024. PFSH All Active Problems Normal spontaneous vaginal delivery (Acute) 33 weeks, prolonged rupture of membranes. Delivery 03/02/2024 Jaylen transfer to [facility] neonatology labor in third trimester (Acute) Prolonged rupture of membranes (Acute) contractions (Acute) labor in second trimester (Acute) History of delivery, currently (Acute) Low back pain (Acute) Economic stress (Acute) Abdominal pain (Acute) Anti-TPO antibodies present (Acute) Depression (Chronic) ADHD, predominantly hyperactive type (Acute) Dx since childhood, no meds since age 12 Exercise-induced asthma (Acute) Anxiety (Chronic) Marijuana use (Acute) Smoker (Acute) (Acute) Migraine (Chronic) Medical History Elevated TSH Hypothyroidism Elevated TSH w/nml T4 Family history of alpha 1 antitrypsin deficiency Pt's mother and sister Family history of hemochromatosis Father of baby's family High risk HPV infection Vaginal Pap smear with LGSIL Lactose intolerance Chronic GERD Obesity BMI 29 at beginning pf Surgical History No significant past surgical history Family History Self Asthma Depression No meds ever Mother Alpha 1-antitrypsin PiMS phenotype Sister Alpha 1-antitrypsin PiMS phenotype Paternal Grandfather Diabetes Social History Smoking/Tobacco Use Status: Current every day Tobacco Type: cigarettes Smoking packs per day: 0.5 Smoking cigarettes per day: 10.0 Tobacco: How many years used: 6 Quit status: considering quitting Counseling given: provider counseling (offerred wellbutrin for mood and smoking cessation and Debra would like to try it. ) Smoking risk assessment performed?: Yes Alcohol Intake: current Alcohol Intake frequency: holidays/special occasions only Drug use: Daily Substance use type: marijuana Housing: house Do you feel safe at home: Yes Do you feel safe in your relationship?: Yes History History 2 Para 1 Hx # Term Pregnancies 0 Multiple births 0 Hx # Pregnancies 1 Ectopic pregnancies 0 AB induced 0 Hx Number of Living Children 1 AB spontaneous 0 Past Pregnancies Del. Date GA/Weeks # Preg Succ Route Wgt Sex Labor Lgth Anesth esia Location [facility] 07/23/22 31 No Yes vaginal 4 lb 0.9 oz Female 7hrs 19min DARRYL Anders Delivery Date: 07/23/22 Last Updated by: AVILA Pastor DS: Data Vitals/I&O Vitals and I&O: Vital Signs Temperature 98.6 F 03/03/24 00:23 Temperature 98.1 F 03/02/24 10:46 Temperature Source Oral 03/02/24 23:32 Pulse 80 03/03/24 02:27 Pulse 72 03/02/24 10:46 Pulse Rhythm Regular 03/02/24 19:23 Respiratory Rate 16 03/03/24 00:23 Blood Pressure 107/57 L 03/03/24 02:27 Blood Pressure 109/68 03/02/24 10:46 Pulse Oximetry 98 03/03/24 02:27 Oxygen Delivery Method Room Air 03/02/24 11:07 Oxygen Flow Rate 0 03/02/24 11:07 Pain Level 8 03/03/24 01:55 Intake & Output 03/02/24 03/02/24 03/03/24 11:59 23:59 11:59 Intake Total 176.134 / 176.134 Output Total 600 / 600 250 / 250 Balance -423.866 / -423.866 -250 / -250 Weight 167 lb Intake: IV 176.134 / 176.134 Output: Urine 600 / 600 250 / 250 Other: Urine Color Yellow Urine Appearance Clear Urine Odor None Data Completed and Pending Labs on day of discharge: Labs from last 24 hours 03/03/24 03/02/24 03/02/24 06:00 12:16 10:30 WBC Pending 14.94 H RBC Pending 3.81 L Hgb Pending 11.6 Hct Pending 34.6 L MCV Pending 91 MCH Pending 30.4 MCHC Pending 33.5 RDW Pending 12.8 Plt Count Pending 197 MPV Pending 11.5 H Membranes Rupture Positive ABO/Rh O Positive Antibody Screen NEGATIVE 03/02/24 11:20 Vaginal/Rectal Group B Streptococcus Culture - Pending Preliminary micro results at discharge 03/02/24 11:20 Group B Streptococcus Culture - Pending Vaginal/Rectal
[2024-03-03 06:45] LABS: HCT 32.3 % (36.0-46.0); HGB 10.7 g/dL (11.2-15.7); MCH 30.2 pg (27.0-33.0); MCHC 33.1 % (32.0-36.0); MCV 91 fL (80-95); MPV 11.8 fL (8.0-11.0); Platelet Count 196 10^3/uL (130-400); RBC 3.54 10^6/uL (3.93-5.22); RDW 12.9 % (11.7-14.6); RDW-SD 42.2 fL; WBC 15.48 10^3/uL (4.4-10.8)
[2024-03-03] MEDS: Ondansetron 4 MG/2 ML VIAL IVP (07:00)
== END 2024-03-03 08:15 | disposition short-term general hospital (02) | DRG 806 ==
LOC: OBS 11:40
PROVIDERS: Admitting Provider Obstetrics & Gynecology; PCP Nurse Practitioner Family; Visit Provider Obstetrics & Gynecology
DX: O60.14X0 Preterm labor third trimester with preterm delivery third trimester, not applicable or unspecified (principal); O99.324 Drug use complicating childbirth; Z37.0 Single live birth; O99.354 Diseases of the nervous system complicating childbirth; Z3A.33 33 weeks gestation of pregnancy; O42.913 Preterm premature rupture of membranes, unspecified as to length of time between rupture and onset of labor, third trimester; O70.0 First degree perineal laceration during delivery; O99.334 Smoking (tobacco) complicating childbirth; F17.210 Nicotine dependence, cigarettes, uncomplicated; F17.290 Nicotine dependence, other tobacco product, uncomplicated; O99.344 Other mental disorders complicating childbirth; F41.8 Other specified anxiety disorders; F12.90 Cannabis use, unspecified, uncomplicated; G43.909 Migraine, unspecified, not intractable, without status migrainosus; J45.990 Exercise induced bronchospasm; O99.52 Diseases of the respiratory system complicating childbirth; M54.50 Low back pain, unspecified; O75.89 Other specified complications of labor and delivery; K21.9 Gastro-esophageal reflux disease without esophagitis; E03.9 Hypothyroidism, unspecified; E66.9 Obesity, unspecified; O99.284 Endocrine, nutritional and metabolic diseases complicating childbirth; O99.214 Obesity complicating childbirth; O99.62 Diseases of the digestive system complicating childbirth
CPT/HCPCS: 36415; 84112; 85027; 86850; 86900; 86901; 87081; 88307; 88312; J2405; J2540

== ENCOUNTER 2024-07-26 15:01 | Emergency (ER) | payer MEDICAID, SELFPAY ==
[2024-07-26] VITALS (52 sets, daily range): BP systolic 90–155; BP diastolic 43–89; PULSE 80–114; RESP 14–41; TEMP 37.1–37.9; O2SAT 95–98
--- NOTE | 2024-07-26 15:00 | DI.RAD_ITS ---
Exam(s) XR CHEST 2V PA LATERAL EXAM: XR CHEST 2V PA LATERAL CLINICAL HISTORY: cough, flu. TECHNIQUE: 2D digital imaging was performed. COMPARISON: CT CT CHEST/ABD/PEL W from 06/27/2019 FINDINGS: 2 views: Heart size is normal. The mediastinum is not widened. Lungs are clear. No infiltrates nor pleural effusions. IMPRESSION: No acute pulmonary findings. DATA REPOSITORY: RADIATION DOSE DELIVERED:
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
[2024-07-26] MEDS: Albuterol HFA 8 GM 60 PUFF INH IH (15:27)
[2024-07-26] MEDS: Acetaminophen 500 MG TAB 1000 MG PO (15:28)
[2024-07-26] MEDS: Ibuprofen 400 MG TAB PO (15:28)
[2024-07-26] MEDS: Inhaler, Assist Device 1 EACH MC (15:30)
[2024-07-26] MEDS: Ondansetron O.D.T. 4 MG TABEF PO (15:35)
[2024-07-26] MEDS: Albuterol/Ipratropium 3 ML UPD VIAL UPD (15:35)
[2024-07-26 16:12] LABS: Abs Immature Grans 0.03 10^3/uL (0.0-0.06); Absolute Basophil Count 0.03 10^3/uL (0.0-0.2); Absolute Eosinophil Count 0.02 10^3/uL (0.0-0.7); Absolute Monocyte Count 0.38 10^3/uL (0.1-0.8); Basophils % 0.3 %; Eosinophils % 0.2 %; HCT 44.5 % (36.0-46.0); HGB 14.9 g/dL (11.2-15.7); Immature Grans % 0.3 %; MCH 28.5 pg (27.0-33.0); MCHC 33.5 % (32.0-36.0); MCV 85 fL (80-95); MPV 11.5 fL (8.0-11.0); Monocytes % 3.5 %; Neutrophils % 82.7 %; Platelet Count 197 10^3/uL (130-400); RBC 5.23 10^6/uL (3.93-5.22); RDW-SD 43.5 fL; WBC 10.76 10^3/uL (4.4-10.8)
[2024-07-26 16:13] LABS: Lactate 1.9 mmol/L (<or=2.0)
[2024-07-26 16:30] LABS: ALT 32 U/L (14-59); AST 17 U/L (15-37); Albumin 3.7 g/dL (3.4-5.0); Alkaline Phosphatase 94 U/L (46-116); Anion Gap 9.6 mmol/L (3-11); BUN 4 mg/dL (7-18); Bilirubin, Total 0.55 mg/dL (0.2-1.0); CO2 26.4 mmol/L (21.0-32.0); CREATININE 0.7 mg/dL (0.55-1.02); Chloride 102 mmol/L (98-107); Estimated GFR 123.78 (mL/min/1.73m2); Glucose 144 mg/dL (74-106); Sodium 138 mmol/L (136-145); Total Protein 7.6 g/dL (6.4-8.2)
[2024-07-26 16:31] LABS: Potassium 2.9 mmol/L (3.5-5.1)
[2024-07-26] MEDS: POTASSIUM CHLORIDE 10 MEQ/100 ML BAG 100 MEQ IV_INF ×2 (17:00→19:15)
[2024-07-26] MEDS: Potassium Chloride 20 MEQ TABCR 40 MEQ PO (17:01)
[2024-07-26] MEDS: Ondansetron O.D.T. 4 MG TABEF, 3 TABS/BTL PO (21:06)
== END 2024-07-26 21:07 | disposition home or self-care (01) ==
PROVIDERS: Emergency Provider Physician Assistant; PCP Nurse Practitioner Family
DX: B34.9 Viral infection, unspecified (principal); E87.6 Hypokalemia; E03.9 Hypothyroidism, unspecified; F17.210 Nicotine dependence, cigarettes, uncomplicated
CPT/HCPCS: 80053; 87426; 94640; 99284; 71046; 83605; 85025; J3480; J7620

== ENCOUNTER 2025-02-25 12:49 | Outpatient (REF) | payer MEDICAID, SELFPAY ==
--- NOTE | 2025-02-25 12:30 | PAPFT_PTH ---
PATIENT: Debra Draper LOC: [facility] U#:[id number] AGE/SX: 24/F ROOM: RE02/25/[address]: Lennie Dave : 2000 BED: DIS: 02/25/2025 SPEC #: [id number] RECD: 02/26/25 12:29 STATUS: NAHID ANGEL #: [id number] GRADY: 02/25/25 12:[address]: Lennie Dave DEPT: [facility] Cytology RECD BY: Josiane Noriega Tissues: 1 - CX/ENDOCX FOR PAP SMEARS Procedures: PAP THIN PREP/UVM Screening Comments: [id number]
[2025-02-25 20:51] LABS: Abs Immature Grans 0.02 10^3/uL (0.0-0.06); HCT 43.7 % (36.0-46.0); HGB 14.7 g/dL (11.2-15.7); Immature Grans % 0.2 %; MCH 29.7 pg (27.0-33.0); MCHC 33.6 % (32.0-36.0); MCV 88 fL (80-95); Platelet Count 269 10^3/uL (130-400); RBC 4.95 10^6/uL (3.93-5.22); RDW 12.9 % (11.7-14.6); RDW-SD 42.0 fL; WBC 9.95 10^3/uL (4.4-10.8)
[2025-02-25 21:08] LABS: Hemoglobin A1C 5.0 % (<5.7)
[2025-02-25 21:09] LABS: Iron 52 ug/dL (50-170); Total Iron Binding Capacity 336 ug/dL (250-450); Transferrin Sat 15 % (15-50)
[2025-02-25 21:15] LABS: Calculated LDL 113 mg/dL (<100); Cholesterol 174 mg/dL (<200); Ferritin 32 ng/mL (8-252); HDL Cholesterol 40 mg/dL (>or=50); TSH (W/Ref FT4) 3.97 uIU/mL (0.36-3.74); Triglyceride 105 mg/dL (<150)
[2025-02-25 21:41] LABS: RBC Morphology Normal
== END 2025-02-25 12:50 | disposition home or self-care (01) ==
LOC: NCHCN 12:49
PROVIDERS: PCP Nurse Practitioner Family; Visit Provider Nurse Practitioner Family
DX: Z12.4 Encounter for screening for malignant neoplasm of cervix (principal)
CPT/HCPCS: 80061; 88142; 82728; 83036; 83540; 83550; 84439; 84443; 85025; 87480; 87510; 87660

== ENCOUNTER 2025-05-23 17:00 | Outpatient (REF) | payer MEDICAID, SELFPAY ==
[2025-05-23 21:05] LABS: HCT 43.9 % (36.0-46.0); HGB 14.4 g/dL (11.2-15.7); MCH 29.3 pg (27.0-33.0); MCHC 32.8 % (32.0-36.0); MCV 89 fL (80-95); MPV 12.7 fL (8.0-11.0); Platelet Count 331 10^3/uL (130-400); RBC 4.92 10^6/uL (3.93-5.22); RDW 12.8 % (11.7-14.6); RDW-SD 42.3 fL; WBC 12.05 10^3/uL (4.4-10.8)
[2025-05-23 21:26] LABS: Lipase 23 U/L (<53)
[2025-05-23 21:29] LABS: ALT 19 U/L (10-49); AST 15 U/L (<34); Albumin 4.3 g/dL (3.2-5.0); Alkaline Phosphatase 105 U/L (46-116); Anion Gap 8.4 mmol/L (3-11); BUN 10 mg/dL (9-23); Bilirubin, Total 0.4 mg/dL (0.2-1.2); CO2 27.6 mmol/L (20.0-31.0); Calcium 9.8 mg/dL (8.3-10.6); Chloride 106 mmol/L (98-107); Glucose 90 mg/dL (74-106); Potassium 3.6 mmol/L (3.5-5.1); Sodium 142 mmol/L (136-145); Total Protein 7.2 g/dL (5.7-8.2)
[2025-05-23 21:32] LABS: TSH (W/Ref FT4) 1.58 uIU/mL (0.55-4.78)
== END 2025-05-23 17:01 | disposition home or self-care (01) ==
LOC: NCHCN 17:00
PROVIDERS: PCP Nurse Practitioner Family
DX: R11.2 Nausea with vomiting, unspecified (principal); E03.9 Hypothyroidism, unspecified
CPT/HCPCS: 80053; 83690; 85027; 84443